=== PATIENT | female | born 1965 | race African-American/Black ===

== ENCOUNTER 2019-03-30 09:01 | Emergency (ER) | payer BC ==
[~2019-03-30] VITALS: Ht 172.7 cm; Wt 81.0 kg
[~2019-03-30 09:01] MED LIST: POLY17PO29 PO
--- NOTE | 2019-03-30 09:42 | PHYS DOC ---
Past Medical History Past Medical History: Hypertension, TB Additional Past Medical Histor: TB Past Surgical History: Additional Past Surgical Histo: RIGHT SHOULDER, , RIGHT HAND Alcohol Use: None Drug Use: None Adult General Chief Complaint Chief Complaint: HYPERTENSION HPI HPI Patient is a 54 year old female who presents with out of blood pressure medi cations for the last 3 months. She states last week she's had headaches that come and go and chest pains in her mid chest as a tightness and pressure. She denies shortness of breath, abdominal pain, nausea, vomiting, diarrhea, numbness or tingling, weakness, visual changes, dizziness. She states that at times she will get a headache that will come and go but is right behind her left eye. She states that this morning she could tell her blood pressure was high and so she drank some apple cider vinegar and started feeling better. Patient currently has no pain and is not symptomatic. Review of Systems Review of Systems Respiratory: Denies cough or shortness of breath [] Cardiovascular: Intermittent chest tightness and pressure.] : Constipation. Denies dysuria or hematuria [] Neurologic: Intermittent headache, focal weakness or sensory changes [] All other systems were reviewed and found to be within normal limits, except as documented in this note. Current Medications Current Medications Current Medications Medications (Trade) Dose Ordered Sig/Kimber Start Time Stop Time Status Last Admin Dose Admin Aspirin (Meredith Aspirin) 325 mg 1X ONCE 03/30/19 09:45 03/30/19 10:28 DC 03/30/19 10:42 325 MG Clonidine HCl (Catapres) 0.2 mg 1X ONCE 03/30/19 11:00 03/30/19 11:01 DC 03/30/19 11:35 0.2 MG Allergies Allergies Allergies Coded Allergies Type Severity Reaction Last Updated Verified No Known Drug Allergies 03/30/19 No Physical Exam Physical Exam Constitutional: Well developed, well nourished, no acute distress, non-toxic appearance. [] HENT: Normocephalic, atraumatic, bilateral external ears normal, oropharynx moist, no oral exudates, nose normal. [] Eyes: PERRLA, EOMI, conjunctiva normal, no discharge. [] Neck: Normal range of motion, no tenderness, supple, no stridor. [] Cardiovascular:Heart rate regular rhythm, no murmur [] Lungs & Thorax: Bilateral breath sounds clear to auscultation [] Abdomen: Bowel sounds normal, soft, no tenderness, no masses, no pulsatile masses. [] Skin: Warm, dry, no erythema, no rash. [] Back: No tenderness, no CVA tenderness. [] Extremities: No tenderness, no cyanosis, no clubbing, ROM intact, no edema. [] Neurologic: Alert and oriented X 3, normal motor function, normal sensory function, no focal deficits noted. [] Psychologic: Affect normal, judgement normal, mood normal. Normal Physical Exam[] Current Patient Data Vital Signs Vital Signs Date Time Temp Pulse Resp B/P (MAP) Pulse Ox O2 Delivery O2 Flow Rate FiO2 03/30/19 11:35 73 172/94 03/30/19 11:32 97 03/30/19 10:48 18 03/30/19 09:19 98.4 Room Air 98.4 Lab Values Laboratory Tests Test 03/30/19 10:05 03/30/19 11:25 White Blood Count 8.3 x10^3/uL (4.0-11.0) Red Blood Count 4.34 x10^6/uL (3.50-5.40) Hemoglobin 13.7 g/dL (12.0-15.5) Hematocrit 40.3 % (36.0-47.0) Mean Corpuscular Volume 93 fL (79-100) Mean Corpuscular Hemoglobin 32 pg (25-35) Mean Corpuscular Hemoglobin Concent 34 g/dL (31-37) Red Cell Distribution Width 13.6 % (11.5-14.5) Platelet Count 306 x10^3/uL (140-400) Neutrophils (%) (Auto) 62 % (31-73) Lymphocytes (%) (Auto) 26 % (24-48) Monocytes (%) (Auto) 10 % (0-9) H Eosinophils (%) (Auto) 2 % (0-3) Basophils (%) (Auto) 1 % (0-3) Neutrophils # (Auto) 5.2 x10^3/uL (1.8-7.7) Lymphocytes # (Auto) 2.1 x10^3/uL (1.0-4.8) Monocytes # (Auto) 0.8 x10^3/uL (0.0-1.1) Eosinophils # (Auto) 0.1 x10^3/uL (0.0-0.7) Basophils # (Auto) 0.1 x10^3/uL (0.0-0.2) Prothrombin Time 12.8 SEC (11.7-14.0) Prothrombin Time INR 1.0 (0.8-1.1) Sodium Level 144 mmol/L (136-145) Potassium Level 3.8 mmol/L (3.5-5.1) Chloride Level 107 mmol/L (98-107) Carbon Dioxide Level 27 mmol/L (21-32) Anion Gap 10 (6-14) Blood Urea Nitrogen 16 mg/dL (7-20) Creatinine 0.8 mg/dL (0.6-1.0) Estimated GFR (Cockcroft-Gault) 90.8 BUN/Creatinine Ratio 20 (6-20) Glucose Level 95 mg/dL (70-99) Calcium Level 9.4 mg/dL (8.5-10.1) Total Bilirubin 0.3 mg/dL (0.2-1.0) Aspartate Amino Transferase (AST) 13 U/L (15-37) L Alanine Aminotransferase (ALT) 12 U/L (14-59) L Alkaline Phosphatase 81 U/L (46-116) Troponin I Quantitative < 0.017 ng/mL (0.000-0.055) RO-Vfx-H-Type Natriuretic Peptide 21 pg/mL (0-124) Total Protein 7.4 g/dL (6.4-8.2) Albumin 3.7 g/dL (3.4-5.0) Albumin/Globulin Ratio 1.0 (1.0-1.7) Urine Collection Type Unknown Urine Color Yellow Urine Clarity Clear Urine pH 6.0 Urine Specific [place] 1.015 Urine Protein Negative mg/dL (NEG-TRACE) Urine Glucose (UA) Negative mg/dL (NEG) Urine Ketones (Stick) Negative mg/dL (NEG) Urine Blood Negative (NEG) Urine Nitrite Negative (NEG) Urine Bilirubin Negative (NEG) Urine Urobilinogen Dipstick 1.0 mg/dL (0.2 mg/dL) Urine Leukocyte Esterase Moderate (NEG) Urine RBC 0 /HPF (0-2) Urine WBC 1-4 /HPF (0-4) Urine Squamous Epithelial Cells Few /LPF Urine Bacteria 0 /HPF (0-FEW) Urine Opiates Screen Neg (NEG) Urine Methadone Screen Neg (NEG) Urine Barbiturates Neg (NEG) Urine Phencyclidine Screen Neg (NEG) Urine Amphetamine/Methamphetamine Neg (NEG) Urine Benzodiazepines Screen Neg (NEG) Urine Cocaine Screen Neg (NEG) Urine Cannabinoids Screen Pos (NEG) Urine Ethyl Alcohol Neg (NEG) Laboratory Tests 03/30/19 10:05 Laboratory Tests 03/30/19 10:05 EKG EKG Sinus Rhythm and no STEMI Interpretation Time: [address] Vasques Radiology/Procedures Radiology/Procedures [] Impressions: [facility] [address] [place] [address] IMAGING REPORT Signed PATIENT: RANDI LUGO ACCOUNT: [id number] : 1965 LOCATION: ER AGE: 54 SEX: F EXAM STATUS: REG ER ORD. PHYSICIAN: BAY OLIVIA APRN REASON: chest pain PROCEDURE: CHEST PA & LATERAL EXAM: Chest, 2 views. HISTORY: Chest pain. COMPARISON: None. FINDINGS: 2 views of chest are obtained. There is no infiltrate, pleural effusion or pneumothorax. The heart is normal in size. IMPRESSION: No acute pulmonary finding. Electronically signed by: Tova Newman MD (03/30/2019 10:15 AM) [facility] DICTATED and SIGNED BY: TOVA NEWMAN MD DATE: 03/30/19 1015 Course & Med Decision Making Course & Med Decision Making Alert and oriented. Speaks in full clear sentences. Ambulatory with steady gait. Skin pink warm and dry. PERRLA. No extremity edema. Lungs are clear to auscultation all lobes. Patient states usually goes to [facility] and does not remember what medications that she was on for her high blood pressure. She also complains of constipation. Abdomen is soft and nontender. Patient's blood pressure has come down to 164/97. Patient remains asymptomatic. Patient is given Norvasc 5 mg to take daily. She is to follow-up with primary care provider. I have spoken to Dr Vasques about this patient findings and care plan. Dragon Disclaimer Dragon Disclaimer This electronic medical record was generated, in whole or in part, using a voice recognition dictation system. The HEART Score for CP Pts HEART Score for Chest Pain: HEART Score for Chest Pain Response (Comments) Value History Slighlty/Non-Suspicious 0 ECG Normal 0 Age >45 - < 65 1 Risk Factors 1 or 2 Risk Factors 1 Troponin < Normal Limit 0 Total 2 Risk Factors: Risk Factors: DM, Current or recent (<one month) smoker, HTN, HLP, family history of CAD, obesity. Risk Scores: Score 0 - 3: 2.5% MACE over next 6 weeks - Discharge Home Score 4 - 6: 20.3% MACE over next 6 weeks - Admit for Clinical Observation Score 7 - 10: 72.7% MACE over next 6 weeks - Early Invasive Strategies Departure Departure Impression: Primary Impression: Constipation Additional Impressions: Hypertension Chest pain Disposition: HOME, SELF-CARE Condition: STABLE Referrals: NO PCP (PCP) Patient Instructions: Constipation, Adult, Hypertension Additional Instructions: Follow up with a primary care doctor as soon as possible. Take medications as prescribed. Scripts Amlodipine Besylate (NORVASC) 5 Mg Tablet 1 TAB PO DAILY, #30 TAB 5 Refills Prov: BAY OLIVIA APRN 03/30/19 Problem Qualifiers Primary Impression: Constipation Constipation type: unspecified constipation type Qualified Codes: K59.00 - Constipation, unspecified Additional Impressions: Hypertension Hypertension type: unspecified Qualified Codes: I10 - Essential (primary) hypertension Chest pain Chest pain type: unspecified Qualified Codes: R07.9 - Chest pain, unspecified BAY OLIVIA APRN Mar 30, 2019 09:42
[2019-03-30] MEDS ORDERED: ASPIRIN 325 MG TABLET PO ONE (09:45)
--- NOTE | 2019-03-30 10:17 | RAD ---
EXAM: Chest, 2 views. HISTORY: Chest pain. COMPARISON: None. FINDINGS: 2 views of chest are obtained. There is no infiltrate, pleural effusion or pneumothorax. The heart is normal in size. IMPRESSION: No acute pulmonary finding. Electronically signed by: Tova Watson MD (03/30/2019 10:15 AM) [facility]
[2019-03-30 10:19] LABS: BASO # 0.1 x10^3/uL (0.0-0.2); BASO % 1 % (0-3); EOS # 0.1 x10^3/uL (0.0-0.7); EOS % 2 % (0-3); HEMATOCRIT 40.3 % (36.0-47.0); HEMOGLOBIN 13.7 g/dL (12.0-15.5); LYMPH # 2.1 x10^3/uL (1.0-4.8); LYMPH % 26 % (24-48); MEAN CORPUSCULAR HEMOGLOBIN 32 pg (25-35); MEAN CORPUSCULAR HGB CONC 34 g/dL (31-37); MEAN CORPUSCULAR VOLUME 93 fL (79-100); MONO # 0.8 x10^3/uL (0.0-1.1); MONO % 10 % (0-9); NEUT # 5.2 x10^3/uL (1.8-7.7); NEUT % 62 % (31-73); PLATELET COUNT 306 x10^3/uL (140-400); RED BLOOD COUNT 4.34 x10^6/uL (3.50-5.40); RED CELL DISTRIBUTION WIDTH 13.6 % (11.5-14.5); WHITE BLOOD COUNT 8.3 x10^3/uL (4.0-11.0)
[2019-03-30 10:30] LABS: CALCIUM 9.4 mg/dL (8.5-10.1); CREATININE 0.8 mg/dL (0.6-1.0); GFR 90.8; POTASSIUM 3.8 mmol/L (3.5-5.1)
[2019-03-30 10:36] LABS: ALBUMIN 3.7 g/dL (3.4-5.0); TOTAL BILIRUBIN 0.3 mg/dL (0.2-1.0); TOTAL PROTEIN 7.4 g/dL (6.4-8.2)
[2019-03-30 10:40] LABS: PROTHROMBIN TIME PATIENT 12.8 SEC (11.7-14.0)
[2019-03-30] MEDS ORDERED: cloNIDine HCL 0.1 MG TABLET PO ONE (11:00)
[2019-03-30 11:39] LABS: BILIRUBIN,URINE NEGATIVE (NEG); CLARITY,URINE CLEAR; COLOR,URINE YELLOW; NITRITE,URINE NEGATIVE (NEG); PROTEIN,URINE NEGATIVE (NEG-TRACE)
[2019-03-30 11:48] LABS: BARBITURATES NEG (NEG); BENZODIAZEPINES NEG (NEG); CANNABINOIDS POS (NEG); COCAINE NEG (NEG); METHADONE NEG (NEG); OPIATES NEG (NEG); PHENCYCLIDINE NEG (NEG)
[2019-03-30 11:49] LABS: AMPHETAMINE/METHAMPHETAMINE NEG (NEG)
[2019-03-30 11:57] LABS: BACTERIA,URINE 0 /HPF (0-FEW); RBC,URINE 0 /HPF (0-2); SQUAMOUS EPITHELIAL CELL,UR FEW /LPF
--- NOTE | 2019-03-30 12:10 | EKG ---
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
[2019-03-30 12:17] VITALS: BP 164/97
[2019-03-30] MEDS ORDERED: AMLO5TAB4 PO (12:24)
[2019-03-30] MEDS ORDERED: MAGNESIUM CITRATE 296 ML SOLUTION. PO ONE (12:30)
== END 2019-03-30 12:50 | disposition home or self-care (01) ==
LOC: ER 09:01
DX: I10 Essential (primary) hypertension (principal); K59.00 Constipation, unspecified; R07.89 Other chest pain; R51 Headache; A15.9 Respiratory tuberculosis unspecified; Z98.890 Other specified postprocedural states; Z79.82 Long term (current) use of aspirin
CPT/HCPCS: 36415; 71046; 80053; 80307; 81001; 83880; 84484; 85025; 85610; 87086; 93005; 99285

== ENCOUNTER 2020-02-17 08:34 | Emergency (ER) | payer BC ==
[~2020-02-17] VITALS: Ht 172.7 cm; Wt 89.0 kg
[~2020-02-17 08:34] MED LIST changes: +AMLO5TAB4 PO
[2020-02-17 08:45] VITALS: BP 175/103
--- NOTE | 2020-02-17 09:29 | PHYS DOC ---
Past Medical History Past Medical History: Hypertension, TB Additional Past Medical Histor: TB Past Surgical History: Additional Past Surgical Histo: RIGHT SHOULDER, , RIGHT HAND Smoking Status: Current Every Day Smoker Alcohol Use: Occasionally Drug Use: None General Adult EDM: Chief Complaint: EARACHE/EAR PAIN HPI: HPI: Patient is a 55 year old female presents emergency department with complaints of bilateral earaches for the past week along with constipation problems for the past several months. Patient denies any drainage from her ears, denies difficulty hearing, denies nasal congestion, denies cough, denies sore throat, denies shortness of breath, denies chest pains. Patient denies vision problems, denies drainage from her eyes, denies irritation of her eyes. Patient denies facial pain. Patient denies any rashes of her skin. Patient reports generalized abdominal discomfort that she states she cannot put a pain number on because it is not necessarily a pain more that she feels like she is just constipated and full. Patient states that her last normal BM was about a week ago however she does report having small round hard bowel movements yesterday and the day before along with passing gas. Patient denies any rectal pain or bleeding in her stool. Patient denies any vaginal discharge, urinary symptoms, or STI concerns. Patient denies numbness or tingling to her extremities. Patient denies back pain. Patient denies any headaches, fever or chills. Patient denies any recent exposure to the COVID-19 virus and does not feel as if she needs to be tested today for the COVID-19 virus. Patient also states that she noticed her blood pressure was high during the triage process and states that she had not taken her 5 mg amlodipine yet that she usually takes right around 9 AM. Patient denies any headaches, dizziness, or neurological symptom or complaints.. Review of Systems: Review of Systems: 14 body systems of review of systems have been reviewed. See HPI for pertinent positives and negative responses, otherwise all other systems are negative, nonpertinent or noncontributory. Heart Score: Risk Factors: Risk Factors: DM, Current or recent (<one month) smoker, HTN, HLP, family hist ory of CAD, obesity. Risk Scores: Score 0 - 3: 2.5% MACE over next 6 weeks - Discharge Home Score 4 - 6: 20.3% MACE over next 6 weeks - Admit for Clinical Observation Score 7 - 10: 72.7% MACE over next 6 weeks - Early Invasive Strategies Current Medications: Patient reports taking 5 mg amlodipine p.o. daily. Current Medications Medications (Trade) Dose Ordered Sig/Kimber Start Time Stop Time Status Last Admin Dose Admin Ibuprofen (Motrin) 600 mg 1X ONCE 02/17/20 09:30 02/17/20 09:31 Allergies: Allergies: Allergies Coded Allergies Type Severity Reaction Last Updated Verified No Known Drug Allergies 03/30/19 No Physical Exam: PE: Constitutional: Well developed, well nourished, no acute distress, non-toxic appearance. HENT: Normocephalic, atraumatic, bilateral external ears normal, oropharynx moist, no oral exudates, nose normal. Bilateral auditory canals within normal limits, bilateral TMs are reddened at the outer borders with effusion without otorrhea, bulging of bilateral TMs, TMs are intact, bilateral otalgia. Oropharynx slightly erythematous without postnasal drip, no tonsillar swelling no peritonsillar edema, no uvular edema. Oral dentation within normal limits without dental caries, no dentalgia elicited during exam. Eyes: PERRLA, EOMI, conjunctiva normal, no discharge. Neck: Normal range of motion, no tenderness, supple, no stridor. Cardiovascular:Heart rate regular rhythm, no murmur, heart sounds S1-S2 to auscultation. Lungs & Thorax: Bilateral breath sounds clear to auscultation all lung yoon Abdomen: Bowel sounds normal, soft, no masses, no pulsatile masses. Abdomen is rounded, patient obese, elicited generalized discomfort to palpation, however negative psoas sign, negative McBurney's point tenderness, negative rebound tenderness. Skin: Warm, dry, no erythema, no rash. Back: No tenderness, no CVA tenderness. Extremities: No tenderness, no cyanosis, no clubbing, ROM intact, no edema. Neurologic: Alert and oriented X 3, normal motor function, normal sensory function, no focal deficits noted. Psychologic: Affect normal, judgement normal, mood normal. Current Patient Data: Labs: Laboratory Tests Test 02/17/20 09:30 Group A Streptococcus Rapid Negative Current Medications Medications (Trade) Dose Ordered Sig/Kimber Route PRN Reason Start Time Stop Time Status Last Admin Dose Admin Ibuprofen (Motrin) 600 mg 1X ONCE PO 02/17/20 09:30 02/17/20 09:31 DC 02/17/20 09:33 Vital Signs: Vital Signs Date Time Temp Pulse Resp B/P (MAP) Pulse Ox O2 Delivery O2 Flow Rate FiO2 02/17/20 08:45 98.2 89 16 175/103 (127) 99 Room Air 98.2 EKG: EKG: [] Radiology/Procedures: Radiology/Procedures: STATUS: REG ER ORD. PHYSICIAN: BRIA DALAL APRN REASON: ABDOMINAL DISCOMFORT WITH CONSTIPATION PROCEDURE: KUB ABDOMEN AP Clinical Indication: Reason: ABDOMINAL DISCOMFORT WITH CONSTIPATION / Spl. Instructions: / History: Comparison: KUB, November 16, 2018 Findings: The upper abdomen and the right lateral abdomen are excluded. No dilated loops of small bowel are seen. The bowel gas pattern is nonobstructive. Mild colon stool volume. There is no radiopaque foreign body. There are multiple phleboliths in the pelvis. There is no acute bony abnormality. IMPRESSION: Nonobstructive bowel gas pattern. Electronically signed by: Aaron Lugo MD (02/17/2020 10:15 AM) [id number] DICTATED and SIGNED BY: AARON LUGO MD DATE: 02/17/20 [id number] 0 Course & Med Decision Making: Course & Med Decision Making Pertinent Labs and Imaging studies reviewed. (See chart for details) 55-year-old female, vital signs stable, repeat blood pressure 184/90 during physical examination. Physical examination is consistent with bilateral acute otitis media, patient did not complain of sore throat however oropharynx is slightly erythematous, a rapid strep a was obtained, patient's abdominal exam consistent with constipation, KUB was ordered, pending x-ray interpretation and rapid strep results. Patient had not taken her a.m. dose of 5 mg amlodipine, patient given oral fluids so that she may take her morning dose of amlodipine at bedside. Upon reexamination, patient reports some relief of her ear pain with the p.o. Motrin given. House radiologist interpreted KUB x-ray as nonobstructive bowel gas pattern, this is consistent with patient's chief complaint and physical examination. Patient's vital signs reexamine, remained stable. Discussed with patient findings of the rapid strep test and abdominal x-rays. We will start patient on Augmentin twice daily for 7 days. Discussed with patient using ajhl-mvi-aiarjoq laxatives such as MiraLAX or magnesium citrate, increase her daily fiber intake, increase her daily water intake. Patient gave verbal understanding of discharge home instructions, return to ER concerns, follow-up with her physician soon. Primary impression acute otitis media, constipation, this is unlikely a bowel obstruction, this is unlikely a deep tissue infection of the upper respiratory structures. Jesús Disclaimer: Dragon Disclaimer: This electronic medical record was generated, in whole or in part, using a voice recognition dictation system. Departure Departure Impression: Primary Impression: AOM (acute otitis media) Qualified Codes: H66.003 - Acute suppurative otitis media without spontaneous rupture of ear drum, bilateral Additional Impressions: Constipation Qualified Codes: K59.00 - Constipation, unspecified Otalgia of both ears Pharyngitis Qualified Codes: J02.9 - Acute pharyngitis, unspecified Disposition: 01 DC HOME SELF CARE/HOMELESS Condition: STABLE Referrals: NO PCP (PCP) Patient Instructions: Constipation, Adult Additional Instructions: Please take medications as directed, we have discussed your constipation problems, we have also discussed remedies to prevent future constipation, please increase your daily fiber intake and fluid intake, you can use mkeh-oty-zxjecta laxatives such as magnesium citrate or MiraLAX, if you have difficulties finding these at the pharmacy please ask the pharmacist for assistance. Please return to the emergency department for worsening symptoms, please see your doctor soon regarding your ongoing constipation problems so that he can closely monitor [id number] treatments. EMERGENCY DEPARTMENT GENERAL DISCHARGE INSTRUCTIONS Thank you for coming to [facility] Emergency Department (ED) today and trusting us with you care. We trust that you had a positive experience in our Emergency Department. If you wish to speak to the department management, you may call the Director at [phone]. YOUR FOLLOW UP INSTRUCTIONS ARE FOLLOWS: 1. Do you have a private Doctor? If you do not have a private doctor, please ask for a resource list of physicians or clinics that may be able to assist you with follow up care. 2. The Emergency Physicain has interpreted your x-rays. The X-Ray specialist will also review them. If there is a change in the findings, you will be notified in 48 hours when at all possible. 3. A lab test or culture has been done, your results will be reviewed and you will be notified if you need a change in treatment. ADDITIONAL INSTRUCTIONS AND INFORMATION: 1. Your care today has been supervised by a physician who is specially trained in emergency care. Many problems require more than one evaluation for a complete diagnosis and treatment. We recommend that you schedule your follow up appointment as recommended to ensure complete treatment of you illness or injury. If you are unable to obtain follow up care and continue to have a problem, or if your condition worsens, we recommend that you return to the ED. 2. We are not able to safely determine your condition over the phone nor are we able to give sound medical advice over the phone. For these safety reasons, if you call for medical advice we will ask you to come to the ED for further evaluation. 3. If you have any questions regarding these discharge instructions please call the ED at [phone]. SAFETY INFORMATION: In the interest of safety, wellness, and injury prevention; we encourage you to wear your sealbelt, if you smoke; quite smoking, and we encourage family to use a protective helmet for bicycling and other sporting events that present an increased risk for head injury. IF YOUR SYMPTOMS WORSEN OR NEW SYMPTOMS DEVELOP, OR YOU HAVE CONCERNS ABOUT YOUR CONDITION; OR IF YOUR CONDITION WORSENS WHILE YOU ARE WAITING FOR YOUR FOLLOW UP APPOINTMENT; EITHER CONTACT YOUR PRIMARY CARE DOCTOR, THE PHYSICIAN WHOSE NAME AND NUMBER YOU WERE GIVEN, OR RETURN TO THE ED IMMEDIATELY. Scripts Amoxicillin/Potassium Clav (AUGMENTIN 875-125 TABLET) 1 Each Tablet 1 TAB PO BID for ear infection for 7 Days, #14 TAB 0 Refills Prov: BRIA DALAL APRN 02/17/20 BRIA DALAL APRN Feb 17, 2020 09:29
[2020-02-17] MEDS ORDERED: IBUPROFEN 200 MG TABLET. PO ONE (09:30)
--- NOTE | 2020-02-17 10:17 | RAD ---
ABDOMEN AP Clinical Indication: Reason: ABDOMINAL DISCOMFORT WITH CONSTIPATION / Spl. Instructions: / History: Comparison: KUB, November 16, 2018 Findings: The upper abdomen and the right lateral abdomen are excluded. No dilated loops of small bowel are seen. The bowel gas pattern is nonobstructive. Mild colon stool v olume. There is no radiopaque foreign body. There are multiple phleboliths in the pelvis. There is no acute bony abnormality. IMPRESSION: Nonobstructive bowel gas pattern. Electronically signed by: Aaron Hernandez MD (02/17/2020 10:15 AM) [id number]
[2020-02-17] MEDS ORDERED: AMOX1TAB61 PO (10:34)
== END 2020-02-17 10:44 | disposition home or self-care (01) ==
LOC: ER 08:34
DX: H66.003 Acute suppurative otitis media without spontaneous rupture of ear drum, bilateral (principal); K59.00 Constipation, unspecified; J02.9 Acute pharyngitis, unspecified; I10 Essential (primary) hypertension; F17.200 Nicotine dependence, unspecified, uncomplicated
CPT/HCPCS: 74018; 87070; 87880; 99284

== ENCOUNTER 2020-03-10 07:10 | Observation (INO) | payer BC ==
[~2020-03-10] VITALS: Ht 172.7 cm; Wt 95.8 kg
[~2020-03-10 07:10] MED LIST changes: +AMOX1TAB61 PO
--- NOTE | 2020-03-10 07:43 | PHYS DOC ---
Past Medical History Past Medical History: Hypertension, TB Additional Past Medical Histor: TB Past Surgical History: Additional Past Surgical Histo: RIGHT SHOULDER, , RIGHT HAND Smoking Status: Current Every Day Smoker Additional Information: 1/2 ppd Alcohol Use: Occasionally Drug Use: None General Adult EDM: Chief Complaint: CHEST PAIN HPI: HPI: Patient is a 55 year old female who presented to ER for evaluation of chest pain and headache since yesterday. Patient has history of hypertension, she is on Norvasc 5 mg daily. She took her last pill yesterday. Patient complained of headache and blurry vision again when she woke up this morning. She described her chest pain is aching in nature. Patient denies any cough or fever. Patient denies any abdominal pain, no nausea vomiting. Review of Systems: Review of Systems: Constitutional: Denies fever or chills. [] Eyes: Denies change in visual acuity. [] HENT: Denies nasal congestion or sore throat. [] Respiratory: Denies cough or shortness of breath. [] Cardiovascular: Positive for chest pain, no edema GI: Denies abdominal pain, nausea, vomiting, bloody stools or diarrhea. [] : Denies dysuria. [] Musculoskeletal: Denies back pain or joint pain. [] Integument: Denies rash. [] Neurologic: Positive for headache, no focal weakness or numbness Endocrine: Denies polyuria or polydipsia. [] Lymphatic: Denies swollen glands. [] Psychiatric: Denies depression or anxiety. [] Heart Score: HEART Score for Chest Pain: HEART Score for Chest Pain Response (Comments) Value History Moderately Suspicious 1 ECG Nonspecific Repolarizatio 1 Age >45 - < 65 1 Risk Factors 1 or 2 Risk Factors 1 Troponin < Normal Limit 0 Total 4 Risk Factors: Risk Factors: DM, Current or recent (<one month) smoker, HTN, HLP, family history of CAD, obesity. Risk Scores: Score 0 - 3: 2.5% MACE over next 6 weeks - Discharge Home Score 4 - 6: 20.3% MACE over next 6 weeks - Admit for Clinical Observation Score 7 - 10: 72.7% MACE over next 6 weeks - Early Invasive Strategies Current Medications: Current Medications Medications (Trade) Dose Ordered Sig/Kimber Start Time Stop Time Status Last Admin Dose Admin Metoprolol Tartrate (Lopressor Vial) 5 mg 1X ONCE 1/12/21 07:45 03/10/20 07:46 Allergies: Allergies: Allergies Coded Allergies Type Severity Reaction Last Updated Verified No Known Drug Allergies 03/10/20 No Physical Exam: PE: Constitutional: Well developed, well nourished, no acute distress, non-toxic appearance. [] HENT: Normocephalic, atraumatic, bilateral external ears normal, oropharynx moist, no oral exudates, nose normal. [] Eyes: PERRLA, EOMI, conjunctiva normal, no discharge. [] Neck: Normal range of motion, no tenderness, supple, no stridor. [] Cardiovascular:Heart rate regular rhythm, no murmur [] Lungs & Thorax: Bilateral breath sounds clear to auscultation [] Abdomen: Bowel sounds normal, soft, no tenderness, no masses, no pulsatile masses. [] Skin: Warm, dry, no erythema, no rash. [] Back: No tenderness, no CVA tenderness. [] Extremities: No tenderness, no cyanosis, no clubbing, ROM intact, no edema. [] Neurologic: Alert and oriented X 3, normal motor function, normal sensory function, no focal deficits noted. [] Psychologic: Affect normal, judgement normal, mood normal. [] Current Patient Data: Labs: Laboratory Tests Test 03/10/20 07:45 03/10/20 08:45 03/10/20 09:40 White Blood Count 8.0 x10^3/uL Red Blood Count 4.46 x10^6/uL Hemoglobin 14.0 g/dL Hematocrit 41.1 % Mean Corpuscular Volume 92 fL Mean Corpuscular Hemoglobin 31 pg Mean Corpuscular Hemoglobin Concent 34 g/dL Red Cell Distribution Width 13.4 % Platelet Count 302 x10^3/uL Neutrophils (%) (Auto) 54 % Lymphocytes (%) (Auto) 32 % Monocytes (%) (Auto) 10 % Eosinophils (%) (Auto) 2 % Basophils (%) (Auto) 1 % Neutrophils # (Auto) 4.4 x10^3/uL Lymphocytes # (Auto) 2.6 x10^3/uL Monocytes # (Auto) 0.8 x10^3/uL Eosinophils # (Auto) 0.2 x10^3/uL Basophils # (Auto) 0.1 x10^3/uL Sodium Level 145 mmol/L Potassium Level 4.1 mmol/L Chloride Level 108 mmol/L Carbon Dioxide Level 27 mmol/L Anion Gap 10 Blood Urea Nitrogen 16 mg/dL Creatinine 0.9 mg/dL Estimated GFR (Cockcroft-Gault) 79.0 BUN/Creatinine Ratio 18 Glucose Level 105 mg/dL Calcium Level 9.1 mg/dL Magnesium Level 2.2 mg/dL Total Bilirubin 0.3 mg/dL Aspartate Amino Transf (AST/SGOT) 13 U/L Alanine Aminotransferase (ALT/SGPT) 23 U/L Alkaline Phosphatase 71 U/L Troponin I Quantitative < 0.017 ng/mL < 0.017 ng/mL HS-Oks-X-Type Natriuretic Peptide 21 pg/mL Total Protein 6.7 g/dL Albumin 3.5 g/dL Albumin/Globulin Ratio 1.1 Lipase 147 U/L Urine Collection Type Void Urine Color Yellow Urine Clarity Clear Urine pH 6.5 Urine Specific [place] 1.015 Urine Protein Negative mg/dL Urine Glucose (UA) Negative mg/dL Urine Ketones (Stick) Negative mg/dL Urine Blood Negative Urine Nitrite Negative Urine Bilirubin Negative Urine Urobilinogen Dipstick 1.0 mg/dL Urine Leukocyte Esterase Moderate Urine RBC Occ /HPF Urine WBC 5-10 /HPF Urine Squamous Epithelial Cells Mod /LPF Urine Bacteria Few /HPF Urine Mucus Slight /LPF Urine Trichomonas Present Current Medications Medications (Trade) Dose Ordered Sig/Kimber Route PRN Reason Start Time Stop Time Status Last Admin Dose Admin Metoprolol Tartrate (Lopressor Vial) 5 mg 1X ONCE IVP 03/10/20 07:45 03/10/20 07:46 DC 03/10/20 08:10 Nitroglycerin (Nitrostat) 0.4 mg PRN Q5MIN PRN SL CHEST PAIN 03/10/20 08:45 03/10/20 09:36 Iohexol (Omnipaque 350 Mg/ml) 100 ml 1X ONCE IV 03/10/20 09:00 03/10/20 09:01 DC 03/10/20 09:05 Info (CONTRAST GIVEN -- Rx MONITORING) 1 each PRN DAILY PRN MC SEE COMMENTS 03/10/20 09:00 03/12/20 08:59 Laboratory Tests Test 03/10/20 07:45 White Blood Count 8.0 x10^3/uL Red Blood Count 4.46 x10^6/uL Hemoglobin 14.0 g/dL Hematocrit 41.1 % Mean Corpuscular Volume 92 fL Mean Corpuscular Hemoglobin 31 pg Mean Corpuscular Hemoglobin Concent 34 g/dL Red Cell Distribution Width 13.4 % Platelet Count 302 x10^3/uL Neutrophils (%) (Auto) 54 % Lymphocytes (%) (Auto) 32 % Monocytes (%) (Auto) 10 % Eosinophils (%) (Auto) 2 % Basophils (%) (Auto) 1 % Neutrophils # (Auto) 4.4 x10^3/uL Lymphocytes # (Auto) 2.6 x10^3/uL Monocytes # (Auto) 0.8 x10^3/uL Eosinophils # (Auto) 0.2 x10^3/uL Basophils # (Auto) 0.1 x10^3/uL Sodium Level 145 mmol/L Potassium Level 4.1 mmol/L Chloride Level 108 mmol/L Carbon Dioxide Level 27 mmol/L Anion Gap 10 Blood Urea Nitrogen 16 mg/dL Creatinine 0.9 mg/dL Estimated GFR (Cockcroft-Gault) 79.0 BUN/Creatinine Ratio 18 Glucose Level 105 mg/dL Calcium Level 9.1 mg/dL Magnesium Level 2.2 mg/dL Total Bilirubin 0.3 mg/dL Aspartate Amino Transf (AST/SGOT) 13 U/L Alanine Aminotransferase (ALT/SGPT) 23 U/L Alkaline Phosphatase 71 U/L Troponin I Quantitative < 0.017 ng/mL [id number] Natriuretic Peptide 21 pg/mL Total Protein 6.7 g/dL Albumin 3.5 g/dL Albumin/Globulin Ratio 1.1 Lipase 147 U/L Current Medications Medications (Trade) Dose Ordered Sig/Kimber Route PRN Reason Start Time Stop Time Status Last Admin Dose Admin Metoprolol Tartrate (Lopressor Vial) 5 mg 1X ONCE IVP 03/10/20 07:45 03/10/20 07:46 DC 03/10/20 08:10 Vital Signs: Vital Signs Date Time Temp Pulse Resp B/P (MAP) Pulse Ox O2 Delivery O2 Flow Rate FiO2 03/10/20 07:28 98.8 73 18 186/92 (123) 99 Room Air 98.8 EKG: EKG: EKG was done at 7:24 AM, heart rate 77 beats per minute, sinus rhythm, no ST segment elevation. Radiology/Procedures: Radiology/Procedures: [][facility] [address] [place] [address] IMAGING REPORT Signed PATIENT: RANDI LUGO ACCOUNT: [id number] : 1965 LOCATION: ER AGE: 55 SEX: F EXAM STATUS: REG ER ORD. PHYSICIAN: PRAVEEN PACHECO DO REASON: headache, hypertension, blurry vision PROCEDURE: CT HEAD WO CONTRAST EXAM: CT Head without IV contrast INDICATION: Reason: headache, hypertension, blurry vision / Spl. Instructions: / History: TECHNIQUE: Multi-detector row CT images were obtained of the head without the use of IV contrast. All CT scans performed at this facility utilize dose optimization techniques as appropriate to the exam, including the following: Automated exposure control and adjustment of the mA and/or KV according to patient size (this includes techniques or standardized protocols for targeted exams where dose is indication/reason for exam). COMPARISON: None FINDINGS: BRAIN PARENCHYMA: No evidence of acute intraparenchymal hemorrhage or infarct. Mild generalized parenchymal volume loss is present and lacunar infarcts are noted in the caudate head on the left, chronic appearing. There is pe riventricular white matter low density compatible with chronic ischemic microvascular change but is nonspecific. VENTRICLES & EXTRA-AXIAL SPACES: Ventricles are within normal limits. Basilar cisterns are patent. No pathologic extra-axial fluid collection or mass. ORBITS: Orbital contents are unremarkable. SINUSES: Visualized paranasal sinuses and mastoid air cells are clear. OSSEOUS & SOFT TISSUES: Calvarium and skull base are intact but on the inner table of the right squamous temporal bone is a 3.3 x 2.2 x 3.0 cm ossified extra-axial mass compatible with a meningioma. IMPRESSION: 1. No acute intracranial hemorrhage or infarct. 2. Nonspecific generalized white matter low density that, reflects chronic ischemic microvascular change. Some component of vasogenic edema can be difficult to exclude. 3. Right squamous temporal bone 3.2 x 2.2 x 3.0 cm ossified mass in the right middle cranial fossa, most suggestive of a meningioma. Consider follow-up with MRI in further characterization. EXAM: XR CHEST 1V INDICATION: Reason: headache, hypertension, blurry vision / Spl. Instructions: / History: . TECHNIQUE: Single view COMPARISON: Chest x-ray of 03/30/2019 FINDINGS: The heart size is normal. The great vessels appear unremarkable. There is no hilar or mediastinal mass. The lungs are clear. There is no pleural effusion or pneumothorax. There are no significant osseous abnormalities. IMPRESSION: No active cardiopulmonary disease. Electronically signed by: Gregory Nagel MD (03/10/2020 8:19 AM) [id number] DICTATED and SIGNED BY: GREGORY NAGEL MD DATE: 03/10/20 [id number] [facility] [address] [place] [address] IMAGING REPORT Signed PATIENT: RANDI LUGO ACCOUNT: [id number] : 1965 LOCATION: ER AGE: 55 SEX: F EXAM STATUS: REG ER ORD. PHYSICIAN: PRAVEEN PACHECO DO REASON: CHEST PAIN, HYPERTENSIVE PROCEDURE: CT ANGIOGRAPHY CHEST CTA CHEST INDICATION: CHEST PAIN, HYPERTENSIVE Comparison: None. TECHNIQUE: Following the uneventful administration of intravenous contrast, 100 cc Omnipaque 350, axial CT sections were obtained through the lungs and upper abdomen. Multiplanar reconstructions and MIP images were obtained. PQRS compliance statement: One or more of the following individualized dose reduction techniques were utilized for this examination: 1. Automated exposure control 2. Adjustment of the mA and/or kV according to patient size 3. Use of iterative reconstruction technique FINDINGS: Ulnar arteries: No evidence of pulmonary thromboembolic disease. Lungs and Airways: No pulmonary mass or consolidation. No abnormality of the central airways. Pleura: The pleural spaces are normal. Heart and Mediastinum: The visualized thyroid is normal in size and attenuation. No axillary or supraclavicular lymphadenopathy. No mediastinal, hilar or retrocrural lymphadenopathy. The heart and pericardium are within normal limits. The great vessels of the thorax are normal. Abdomen: Limited images through the upper abdomen show no abnormality of the visualized organs. Bones and Soft Tissues: The visualized bones and chest wall soft tissues are within normal limits. IMPRESSION: 1. No evidence of pulmonary thromboembolic disease. 2. No pulmonary mass or consolidation. Electronically signed by: Cirilo Almonte MD (03/10/2020 10:00 AM) [id number] DICTATED and SIGNED BY: CIRILO ALMONTE MD DATE: 03/10/20 [id number] Course & Med Decision Making: Course & Med Decision Making Pertinent Labs and Imaging studies reviewed. (See chart for details) Patient is a 55-year-old female who presented to ER for evaluation of chest pain, headache. Patient was found to be hypertensive, CT head did not show any acute problem. CTA of the chest did not show any acute problem. Patient continued to have chest pain, her lab work did not show any acute problem so far. Her UA show that she has UTI and trichomonas. Patient will be admitted to hospital for further evaluation and treatment. Dragon Disclaimer: Dragon Disclaimer: This electronic medical record was generated, in whole or in part, using a voice recognition dictation system. Departure Departure Impression: Primary Impression: Chest pain Additional Impressions: Hypertension UTI (urinary tract infection) Trichomonal cystitis Disposition: ADMITTED INPT THIS HOSP Admitting Physician: JOSE LUIS (Dr. AMADO) Condition: STABLE Referrals: NO PCP (PCP) PRVAEEN PACHECO DO Mar 10, 2020 07:43
[2020-03-10] MEDS ORDERED: METOPROLOL IV PUSH 5 MG/5 ML VIAL. IVP ONE (07:45)
[2020-03-10 07:58] LABS: BASO # 0.1 x10^3/uL (0.0-0.2); BASO % 1 % (0-3); EOS # 0.2 x10^3/uL (0.0-0.7); EOS % 2 % (0-3); HEMATOCRIT 41.1 % (36.0-47.0); LYMPH # 2.6 x10^3/uL (1.0-4.8); LYMPH % 32 % (24-48); MEAN CORPUSCULAR HEMOGLOBIN 31 pg (25-35); MEAN CORPUSCULAR HGB CONC 34 g/dL (31-37); MEAN CORPUSCULAR VOLUME 92 fL (79-100); MONO # 0.8 x10^3/uL (0.0-1.1); MONO % 10 % (0-9); NEUT # 4.4 x10^3/uL (1.8-7.7); NEUT % 54 % (31-73); PLATELET COUNT 302 x10^3/uL (140-400); RED BLOOD COUNT 4.46 x10^6/uL (3.50-5.40); RED CELL DISTRIBUTION WIDTH 13.4 % (11.5-14.5)
[2020-03-10 08:09] LABS: CALCIUM 9.1 mg/dL (8.5-10.1); CREATININE 0.9 mg/dL (0.6-1.0); POTASSIUM 4.1 mmol/L (3.5-5.1)
[2020-03-10 08:14] LABS: ALBUMIN 3.5 g/dL (3.4-5.0); ALBUMIN/GLOBULIN RATIO 1.1 (1.0-1.7); MAGNESIUM 2.2 mg/dL (1.8-2.4); TOTAL BILIRUBIN 0.3 mg/dL (0.2-1.0); TOTAL PROTEIN 6.7 g/dL (6.4-8.2)
--- NOTE | 2020-03-10 08:21 | RAD ---
EXAM: CT Head without IV contrast INDICATION: Reason: headache, hypertension, blurry vision / Spl. Instructions: / History: TECHNIQUE: Multi-detector row CT images were obtained of the head without the use of IV contrast. All CT scans performed at this facility utilize dose optimization techniques as appropriate to the exam, including the following: Automated exposure control and adjustment of the mA and/or KV according to patient size (this includes techniques or standardized protocols for targeted exams where dose is ind ication/reason for exam). COMPARISON: None FINDINGS: BRAIN PARENCHYMA: No evidence of acute intraparenchymal hemorrhage or infarct. Mild generalized paren chymal volume loss is present and lacunar infarcts are noted in the caudate head on the left, chronic appearing. There is periventricular white matter low density compatible with chronic ischemic microv ascular change but is nonspecific. VENTRICLES & EXTRA-AXIAL SPACES: Ventricles are within normal limits. Basilar cisterns are patent. N o pathologic extra-axial fluid collection or mass. ORBITS: Orbital contents are unremarkable. SINUSES: Visualized paranasal sinuses and mastoid air cells are clear. OSSEOUS & SOFT TISSUES: Calvarium and skull base are intact but on the inner table of the right squa mous temporal bone is a 3.3 x 2.2 x 3.0 cm ossified extra-axial mass compatible with a meningioma. IMPRESSION: 1. No acute intracranial hemorrhage or infarct. 2. Nonspecific generalized white matter low density that, reflects chronic ischemic microvascular mariella nge. Some component of vasogenic edema can be difficult to exclude. 3. Right squamous temporal bone 3.2 x 2.2 x 3.0 cm ossified mass in the right middle cranial fossa, m ost suggestive of a meningioma. Consider follow-up with MRI in further characterization. EXAM: XR CHEST 1V INDICATION: Reason: headache, hypertension, blurry vision / Spl. Instructions: / History: . TECHNIQUE: Single view COMPARISON: Chest x-ray of 03/30/2019 FINDINGS: The heart size is normal. The great vessels appear unremarkable. There is no hilar or mediastinal mass. The lungs are clear. There is no pleural effusion or pneumothorax. There are no significant osseous abnormalities. IMPRESSION: No active cardiopulmonary disease. Electronically signed by: Stanton Nagel MD (03/10/2020 8:19 AM) [id number]
[2020-03-10] MEDS: NITROGLYCERIN SUBLINGUAL 0.4 MG BOTTLE OF 25. SL PRN ×3 (08:54→09:36)
[2020-03-10] MEDS ORDERED: CONTRAST GIVEN. MC PRN (09:00)
[2020-03-10] MEDS ORDERED: IOHEXOL 350 MG/ML 100 ML VIAL. IV ONE (09:00)
[2020-03-10 09:07] LABS: BILIRUBIN,URINE NEGATIVE (NEG); CLARITY,URINE CLEAR; COLOR,URINE YELLOW; NITRITE,URINE NEGATIVE (NEG); PH,URINE 6.5 (<5.0-8.0); PROTEIN,URINE NEGATIVE (NEG-TRACE)
[2020-03-10 09:15] LABS: TRICHOMONAS,URINE PRESENT
[2020-03-10 09:16] LABS: BACTERIA,URINE FEW /HPF (0-FEW); RBC,URINE OCC /HPF (0-2)
--- NOTE | 2020-03-10 10:03 | RAD ---
CTA CHEST INDICATION: CHEST PAIN, HYPERTENSIVE Comparison: None. TECHNIQUE: Following the uneventful administration of intravenous contrast, 100 cc Omnipaque 350, axi al CT sections were obtained through the lungs and upper abdomen. Multiplanar reconstructions and MIP images were obtained. PQRS compliance statement: One or more of the following individualized dose reduction techniques were utilized for this examinat ion: 1. Automated exposure control 2. Adjustment of the mA and/or kV according to patient size 3. Use of iterative reconstruction technique FINDINGS: Ulnar arteries: No evidence of pulmonary thromboembolic disease. Lungs and Airways: No pulmonary mass or consolidation. No abnormality of the central airways. Pleura: The pleural spaces are normal. Heart and Mediastinum: The visualized thyroid is normal in size and attenuation. No axillary or supra clavicular lymphadenopathy. No mediastinal, hilar or retrocrural lymphadenopathy. The heart and peric ardium are within normal limits. The great vessels of the thorax are normal. Abdomen: Limited images through the upper abdomen show no abnormality of the visualized organs. Bones and Soft Tissues: The visualized bones and chest wall soft tissues are within normal limits. IMPRESSION: 1. No evidence of pulmonary thromboembolic disease. 2. No pulmonary mass or consolidation. Electronically signed by: Tony Almonte MD (03/10/2020 10:00 AM) [id number]
--- NOTE | 2020-03-10 10:33 | EKG ---
[facility] [address] [place] [address] Test Date: 2020-03-10 Test Time: 07:22:13 Pat Name: RANDI LUGO Department: Room: Gender: F Protocol Officer: : 1965 Requested By: PRAVEEN PACHECO Order Number: [id number] Reading MD: Ferny Mayfield MD Measurements Intervals [place] Rate: 77 P: 78 IA: 184 QRS: -23 QRSD: 70 T: 20 QT: 418 QTc: 475 Interpretive Statements SINUS RHYTHM Electronically Signed On 03-11-2020 8:09:26 CIRCUITS ENGINEER by Ferny Mayfield MD
[2020-03-10] MEDS ORDERED: ASPIRIN CHEWABLE 81 MG TABLET. PO ONE (11:00)
[2020-03-10] MEDS ORDERED: cefTRIAXone IV Push 1 GM VIAL. IVP ONE (11:00)
[2020-03-10] MEDS: metroNIDAZOLE 500 MG TABLET PO SCH ×2 (11:13→20:19)
--- NOTE | 2020-03-10 13:32 | PDOC1 ---
History and Physical Date of Service: DOS: DATE: 03/10/20 TIME: 13:25 Chief Complaint: Chief Complain: chest pain History of Present Illness: HPI: 55 year old female who presented to ER for evaluation of chest pain and headache since yesterday. Patient has history of hypertension, she is on Norvasc 5 mg daily. She took her last pill yesterday. Patient complained of headache and blurry vision again when she woke up this morning. She described her chest pain is aching in nature. Patient denies any cough or fever. Patient denies any abdominal pain, no nausea vomiting. Past Medical/Surgical History: PMH/PSH: Past Medical History: Hypertension, TB Past Surgical History: , RIGHT SHOULDER, , RIGHT HAND Allergies: Allergies: Coded Allergies: No Known Drug Allergies (Unverified , 03/10/20) Family History: Family History: Reviewed with no relevant findings Social History: Social History: Smoking Status: Current Every Day Smoker Additional Information: 02/28 ppd Alcohol Use: Occasionally Drug Use: None Current Medications: Current Medications Current Medications Metoprolol Tartrate (Lopressor Vial) 5 mg 1X ONCE IVP Last administered on 03/10/20at 08:10; Start 03/10/20 at 07:45; Stop 03/10/20 at 07:46; Status DC Nitroglycerin (Nitrostat) 0.4 mg PRN Q5MIN PRN SL CHEST PAIN Last administered on 03/10/20at 09:36; Start 03/10/20 at 08:45 Iohexol (Omnipaque 350 Mg/ml) 100 ml 1X ONCE IV Last administered on 03/10/20at 09:05; Start 03/10/20 at 09:00; Stop 03/10/20 at 09:01; Status DC Info (CONTRAST GIVEN -- Rx MONITORING) 1 each PRN DAILY PRN MC SEE COMMENTS; Start 03/10/20 at 09:00; Stop 03/12/20 at 08:59 Aspirin (Aspirin Chewable) 324 mg 1X ONCE PO Last administered on 03/10/20at 11:13; Start 03/10/20 at 11:00; Stop 03/10/20 at 11:01; Status DC Ceftriaxone Sodium (Rocephin) 1 gm 1X ONCE IVP Last administered on 03/10/20at 11:09; Start 03/10/20 at 11:00; Stop 03/10/20 at 11:01; Status DC Metronidazole (Flagyl) 500 mg BID PO Last administered on 03/10/20at 11:13; Start 03/10/20 at 11:00 Active Scripts Active Augmentin 875-125 Tablet (Amoxicillin/Potassium Clav) 1 Each Tablet 1 Tab PO BID 7 Days Norvasc (Amlodipine Besylate) 5 Mg Tablet 1 Tab PO DAILY Miralax (Polyethylene Glycol 3350) 17 Gm Powd.pack 1 Packet PO BID ROS: Review of Systems Review of System REVIEW OF SYSTEMS: GENERAL: Denies weakness SKIN: No bruising, hair changes or rashes. EYES: No blurred, double or loss of vision. NOSE AND THROAT: No history of nosebleeds, hoarseness or sore throat. HEART: No history of palpitations, chest pain or shortness of breath on exertion. LUNGS: Denies cough, hemoptysis, wheezing or shortness of breath. GASTROINTESTINAL: Denies changes in appetite, nausea, vomiting, diarrhea or constipation. GENITOURINARY: No history of frequency, urgency, hesitancy or nocturia. NEUROLOGIC: Denies history of numbness, tingling, or tremor. PSYCHIATRIC: No history of panic, anxiety or depression. ENDOCRINE: No history of heat or cold intolerance, polyuria or polydipsia. EXTREMITIES: Denies joint pain, pain on walking or stiffness. Physical Exam: Vital Signs: Vital Signs Date Time Temp Pulse Resp B/P (MAP) Pulse Ox O2 Delivery O2 Flow Rate FiO2 03/10/20 12:11 66 18 162/80 (107) 98 Room Air 03/10/20 07:28 98.8 98.8 Physcial Exam: GEN: No apparent distress. Alert and oriented HEENT: Normal cephalic, atraumatic, external auditory canals are patent EYES: Extraocular muscles are intact, pupil are equally round and reactive to light and accommodation MUSCULOSKELETAL: Well developed , well nourished, good range of motion ENDOCRINE: No thyromegaly was palpated LYMPHATICS: No cervical chain or axillary nodes were noted HEMATOPOIETIC: No bruising NECK: Supple, no JVD, no thyromegaly was noted LUNGS: Clear to auscultation in all lung yoon without rhonchi or wheezing HEART: RRR, S!, S2 present. Peripheral pulses intact, no obvious murmurs noted ABDOMEN: Soft, nontender. Positive bowel sounds, no organomegaly, normal bowel sounds EXTREMITIES: Without clubbing, cyanosis, or edema. Pedal pulses intact. Negative Homans sign NEUROLOGIC: Normal speech and tone. A&O x 3, moves all extremities, no obvious focal deficits PSYCHIATRIC: Normal affect, normal mood. Stable SKIN: No ulcerations or rashes, good skin turgor, no jaundice VASCULAR: Good capillary refill, neurovascular bundle appears to be intact Labs: Labs: Laboratory Tests Test 03/10/20 07:45 03/10/20 08:45 03/10/20 09:40 03/10/20 11:40 White Blood Count 8.0 x10^3/uL (4.0-11.0) Red Blood Count 4.46 x10^6/uL (3.50-5.40) Hemoglobin 14.0 g/dL (12.0-15.5) Hematocrit 41.1 % (36.0-47.0) Mean Corpuscular Volume 92 fL (79-100) Mean Corpuscular Hemoglobin 31 pg (25-35) Mean Corpuscular Hemoglobin Concent 34 g/dL (31-37) Red Cell Distribution Width 13.4 % (11.5-14.5) Platelet Count 302 x10^3/uL (140-400) Neutrophils (%) (Auto) 54 % (31-73) Lymphocytes (%) (Auto) 32 % (24-48) Monocytes (%) (Auto) 10 % (0-9) Eosinophils (%) (Auto) 2 % (0-3) Basophils (%) (Auto) 1 % (0-3) Neutrophils # (Auto) 4.4 x10^3/uL (1.8-7.7) Lymphocytes # (Auto) 2.6 x10^3/uL (1.0-4.8) Monocytes # (Auto) 0.8 x10^3/uL (0.0-1.1) Eosinophils # (Auto) 0.2 x10^3/uL (0.0-0.7) Basophils # (Auto) 0.1 x10^3/uL (0.0-0.2) Sodium Level 145 mmol/L (136-145) Potassium Level 4.1 mmol/L (3.5-5.1) Chloride Level 108 mmol/L (98-107) Carbon Dioxide Level 27 mmol/L (21-32) Anion Gap 10 (6-14) Blood Urea Nitrogen 16 mg/dL (7-20) Creatinine 0.9 mg/dL (0.6-1.0) Estimated GFR (Cockcroft-Gault) 79.0 BUN/Creatinine Ratio 18 (6-20) Glucose Level 105 mg/dL (70-99) Calcium Level 9.1 mg/dL (8.5-10.1) Magnesium Level 2.2 mg/dL (1.8-2.4) Total Bilirubin 0.3 mg/dL (0.2-1.0) Aspartate Amino Transf (AST/SGOT) 13 U/L (15-37) Alanine Aminotransferase (ALT/SGPT) 23 U/L (14-59) Alkaline Phosphatase 71 U/L (46-116) Troponin I Quantitative < 0.017 ng/mL (0.000-0.055) < 0.017 ng/mL (0.000-0.055) < 0.017 ng/mL (0.000-0.055) KM-Moe-L-Type Natriuretic Peptide 21 pg/mL (0-124) Total Protein 6.7 g/dL (6.4-8.2) Albumin 3.5 g/dL (3.4-5.0) Albumin/Globulin Ratio 1.1 (1.0-1.7) Lipase 147 U/L (73-393) Urine Collection Type Void Urine Color Yellow Urine Clarity Clear Urine pH 6.5 (<5.0-8.0) Urine Specific [place] 1.015 (1.000-1.030) Urine Protein Negative mg/dL (NEG-TRACE) Urine Glucose (UA) Negative mg/dL (NEG) Urine Ketones (Stick) Negative mg/dL (NEG) Urine Blood Negative (NEG) Urine Nitrite Negative (NEG) Urine Bilirubin Negative (NEG) Urine Urobilinogen Dipstick 1.0 mg/dL (0.2 mg/dL) Urine Leukocyte Esterase Moderate (NEG) Urine RBC Occ /HPF (0-2) Urine WBC 5-10 /HPF (0-4) Urine Squamous Epithelial Cells Mod /LPF Urine Bacteria Few /HPF (0-FEW) Urine Mucus Slight /LPF Urine Trichomonas Present Laboratory Tests Test 03/10/20 07:45 03/10/20 08:45 03/10/20 09:40 03/10/20 11:40 White Blood Count 8.0 x10^3/uL (4.0-11.0) Red Blood Count 4.46 x10^6/uL (3.50-5.40) Hemoglobin 14.0 g/dL (12.0-15.5) Hematocrit 41.1 % (36.0-47.0) Mean Corpuscular Volume 92 fL (79-100) Mean Corpuscular Hemoglobin 31 pg (25-35) Mean Corpuscular Hemoglobin Concent 34 g/dL (31-37) Red Cell Distribution Width 13.4 % (11.5-14.5) Platelet Count 302 x10^3/uL (140-400) Neutrophils (%) (Auto) 54 % (31-73) Lymphocytes (%) (Auto) 32 % (24-48) Monocytes (%) (Auto) 10 % (0-9) Eosinophils (%) (Auto) 2 % (0-3) Basophils (%) (Auto) 1 % (0-3) Neutrophils # (Auto) 4.4 x10^3/uL (1.8-7.7) Lymphocytes # (Auto) 2.6 x10^3/uL (1.0-4.8) Monocytes # (Auto) 0.8 x10^3/uL (0.0-1.1) Eosinophils # (Auto) 0.2 x10^3/uL (0.0-0.7) Basophils # (Auto) 0.1 x10^3/uL (0.0-0.2) Sodium Level 145 mmol/L (136-145) Potassium Level 4.1 mmol/L (3.5-5.1) Chloride Level 108 mmol/L (98-107) Carbon Dioxide Level 27 mmol/L (21-32) Anion Gap 10 (6-14) Blood Urea Nitrogen 16 mg/dL (7-20) Creatinine 0.9 mg/dL (0.6-1.0) Estimated GFR (Cockcroft-Gault) 79.0 BUN/Creatinine Ratio 18 (6-20) Glucose Level 105 mg/dL (70-99) Calcium Level 9.1 mg/dL (8.5-10.1) Magnesium Level 2.2 mg/dL (1.8-2.4) Total Bilirubin 0.3 mg/dL (0.2-1.0) Aspartate Amino Transf (AST/SGOT) 13 U/L (15-37) Alanine Aminotransferase (ALT/SGPT) 23 U/L (14-59) Alkaline Phosphatase 71 U/L (46-116) Troponin I Quantitative < 0.017 ng/mL (0.000-0.055) < 0.017 ng/mL (0.000-0.055) < 0.017 ng/mL (0.000-0.055) RJ-Ztz-O-Type Natriuretic Peptide 21 pg/mL (0-124) Total Protein 6.7 g/dL (6.4-8.2) Albumin 3.5 g/dL (3.4-5.0) Albumin/Globulin Ratio 1.1 (1.0-1.7) Lipase 147 U/L (73-393) Urine Collection Type Void Urine Color Yellow Urine Clarity Clear Urine pH 6.5 (<5.0-8.0) Urine Specific [place] 1.015 (1.000-1.030) Urine Protein Negative mg/dL (NEG-TRACE) Urine Glucose (UA) Negative mg/dL (NEG) Urine Ketones (Stick) Negative mg/dL (NEG) Urine Blood Negative (NEG) Urine Nitrite Negative (NEG) Urine Bilirubin Negative (NEG) Urine Urobilinogen Dipstick 1.0 mg/dL (0.2 mg/dL) Urine Leukocyte Esterase Moderate (NEG) Urine RBC Occ /HPF (0-2) Urine WBC 5-10 /HPF (0-4) Urine Squamous Epithelial Cells Mod /LPF Urine Bacteria Few /HPF (0-FEW) Urine Mucus Slight /LPF Urine Trichomonas Present Images: Images CXR Impression: 1. No acute cardiopulmonary process. Negative chest CTA Negative CT of the head Assessment/Plan Assessment/Plan Chest pain concerning for unstable angina/NSTEMI versus STEMI ROSALIA = EKG showing Troponin Continue aspirin, consider Plavix if intermediate risk will defer this to cardiology Cardiology consulted for predischarge stress testing or left heart cath Continue nitroglycerin as needed for pain Continue beta-brooklynn if blood pressures allow Continue high intensity statins IV morphine as needed Consider Lovenox Maintain O2 sats between 88 to 95% Trend troponins Repeat EKG in the a.m. Continue telemetry monitoring Monitor for electrolyte abnormalities Avoid NSAIDs Justifications for Admission Other Justification NORA AMADO MD Mar 10, 2020 13:32
[2020-03-10] MEDS ORDERED: DOCUSATE SODIUM 100 MG CAPSULE. PO PRN (13:45)
[2020-03-10] MEDS ORDERED: DEXTROSE 50% 25 GM / 50ML DISP.SYRIN. IV PRN (13:45)
[2020-03-10] MEDS ORDERED: NITROGLYCERIN SUBLINGUAL 0.4 MG BOTTLE OF 25. SL PRN (13:45)
[2020-03-10] MEDS ORDERED: ONDANSETRON PF 4 MG/2 ML VIAL. IVP PRN (13:45)
[2020-03-10] MEDS ORDERED: SENNOSIDES 8.6 MG TABLET PO PRN (13:45)
[2020-03-10] MEDS ORDERED: ACETAMINOPHEN 325 MG TABLET. PO PRN (13:45)
[2020-03-10] MEDS: MORPHINE SULFATE 2 MG/ML VIAL. IVP PRN ×3 (13:55→19:36)
[2020-03-10] MEDS ORDERED: LABETALOL 20 MG/4 ML DISP.SYRIN. IVP PRN (15:45)
[2020-03-10 16:00] VITALS: BP 157/88
--- NOTE | 2020-03-10 16:31 | PDOC2 ---
LUIS ANGEL JOHNSON NEUROLOGY TEACHER 03/10/20 1630: CARDIAC CONSULT DATE OF CONSULT Date of Consult DATE: 03/10/20 TIME: 16:19 REASON FOR CONSULT Reason for Consult: Chest pain, HTN REFERRING PHYSICIAN Referring Physician: Shaq HISTORY OF PRESENT ILLNESS HISTORY OF PRESENT ILLNESS This is a pleasant 55 yo female admitted for complains of chest pain pain and f all. Reports that she has been having left twisting pain to her left chest to her left scapular region and her left arm. It wasn't like this in the last week but got worse when she fell twice this morning. She was having vertigo at that time, no palpitations but complains of dizziness. Reports that she has an ear infection and was told that the inside of her ear is inflammed on left and was given augmentin but did not fill complaining too expensive. Presently she is unable to lift her left arm past her shoulder with limited ROM. Also at times she forgets to take her norvasc. She smokes tobacco but no recreational drug use. Denies any past CAD, VTE, or arrhythmias and no hx of CVA. No exertional CP or HAYDEN. 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 PAST MEDICAL HISTORY Cardiovascular: HTN Pulmonary: Other (TB) CENTRAL NERVOUS SYSTEM: Other (No pertinent history) GI: Constipation Heme/Onc: No pertinent hx Psych: No pertinent hx Musculoskeletal: Osteoarthritis Rheumatologic: No pertinent hx Infectious disease: No pertinent hx ENT: No pertinent hx Renal/: No pertinent hx Endocrine: No pertinent hx Dermatology: No pertinent hx PAST SURGICAL HISTORY Past Surgical History: Arthroscopy (right shoulder), FAMILY HISTORY Family History noncontributory Family History: Other (mother with scleroderma) SOCIAL HISTORY Smoke: <1 pack per day ALCOHOL: occassional Drugs: None Lives: Alone CURRENT MEDICATIONS CURRENT MEDICATIONS Current Medications Medications (Trade) Dose Ordered Sig/Kimber Route PRN Reason Start Time Stop Time Status Last Admin Dose Admin Metoprolol Tartrate (Lopressor Vial) 5 mg 1X ONCE IVP 03/10/20 07:45 03/10/20 07:46 DC 03/10/20 08:10 Nitroglycerin (Nitrostat) 0.4 mg PRN Q5MIN PRN SL CHEST PAIN 03/10/20 08:45 03/10/20 13:44 DC 03/10/20 09:36 Iohexol (Omnipaque 350 Mg/ml) 100 ml 1X ONCE IV 03/10/20 09:00 03/10/20 09:01 DC 03/10/20 09:05 Aspirin (Aspirin Chewable) 324 mg 1X ONCE PO 03/10/20 11:00 03/10/20 11:01 DC 03/10/20 11:13 Ceftriaxone Sodium (Rocephin) 1 gm 1X ONCE IVP 03/10/20 11:00 03/10/20 11:01 DC 03/10/20 11:09 Metronidazole (Flagyl) 500 mg BID PO 03/10/20 11:00 03/10/20 11:13 Morphine Sulfate (Morphine Sulfate) 2 mg PRN Q2HR PRN IVP SEVERE PAIN 7-10 03/10/20 13:45 03/10/20 13:55 ALLERGIES ALLERGIES: Coded Allergies: No Known Drug Allergies (Unverified , 03/10/20) ROS Review of System 14 point ROS evaluated with pertinent positives noted per HPI PHYSICAL EXAM General: Alert, Oriented X3, Cooperative, No acute distress HEENT: Atraumatic, Mucous membr. moist/pink Lungs: Clear to auscultation, Normal air movement Heart: Regular rate (SR), Normal S1, Normal S2, No murmurs Abdomen: Soft, No tenderness Extremities: No cyanosis, No edema Skin: No breakdown, No significant lesion Neuro: Normal speech, Sensation intact Psych/Mental Status: Mental status NL, Mood NL MUSCULOSKELETAL: Osteoarthritic changes both hands VITALS/I&O VITALS/I&O: Vital Signs Date Time Temp Pulse Resp B/P (MAP) Pulse Ox O2 Delivery O2 Flow Rate FiO2 03/10/20 14:25 58 16 165/95 (118) 98 Room Air 03/10/20 07:28 98.8 98.8 LABS Lab: Laboratory Tests Test 03/10/20 07:45 03/10/20 08:45 03/10/20 09:40 03/10/20 11:40 White Blood Count 8.0 x10^3/uL (4.0-11.0) Red Blood Count 4.46 x10^6/uL (3.50-5.40) Hemoglobin 14.0 g/dL (12.0-15.5) Hematocrit 41.1 % (36.0-47.0) Mean Corpuscular Volume 92 fL (79-100) Mean Corpuscular Hemoglobin 31 pg (25-35) Mean Corpuscular Hemoglobin Concent 34 g/dL (31-37) Red Cell Distribution Width 13.4 % (11.5-14.5) Platelet Count 302 x10^3/uL (140-400) Neutrophils (%) (Auto) 54 % (31-73) Lymphocytes (%) (Auto) 32 % (24-48) Monocytes (%) (Auto) 10 % (0-9) H Eosinophils (%) (Auto) 2 % (0-3) Basophils (%) (Auto) 1 % (0-3) Neutrophils # (Auto) 4.4 x10^3/uL (1.8-7.7) Lymphocytes # (Auto) 2.6 x10^3/uL (1.0-4.8) Monocytes # (Auto) 0.8 x10^3/uL (0.0-1.1) Eosinophils # (Auto) 0.2 x10^3/uL (0.0-0.7) Basophils # (Auto) 0.1 x10^3/uL (0.0-0.2) Sodium Level 145 mmol/L (136-145) Potassium Level 4.1 mmol/L (3.5-5.1) Chloride Level 108 mmol/L (98-107) H Carbon Dioxide Level 27 mmol/L (21-32) Anion Gap 10 (6-14) Blood Urea Nitrogen 16 mg/dL (7-20) Creatinine 0.9 mg/dL (0.6-1.0) Estimated GFR (Cockcroft-Gault) 79.0 BUN/Creatinine Ratio 18 (6-20) Glucose Level 105 mg/dL (70-99) H Calcium Level 9.1 mg/dL (8.5-10.1) Magnesium Level 2.2 mg/dL (1.8-2.4) Total Bilirubin 0.3 mg/dL (0.2-1.0) Aspartate Amino Transferase (AST) 13 U/L (15-37) L Alanine Aminotransferase (ALT) 23 U/L (14-59) Alkaline Phosphatase 71 U/L (46-116) Troponin I Quantitative < 0.017 ng/mL (0.000-0.055) < 0.017 ng/mL (0.000-0.055) < 0.017 ng/mL (0.000-0.055) LY-Lzt-W-Type Natriuretic Peptide 21 pg/mL (0-124) Total Protein 6.7 g/dL (6.4-8.2) Albumin 3.5 g/dL (3.4-5.0) Albumin/Globulin Ratio 1.1 (1.0-1.7) Lipase 147 U/L (73-393) Urine Collection Type Void Urine Color Yellow Urine Clarity Clear Urine pH 6.5 (<5.0-8.0) Urine Specific [place] 1.015 (1.000-1.030) Urine Protein Negative mg/dL (NEG-TRACE) Urine Glucose (UA) Negative mg/dL (NEG) Urine Ketones (Stick) Negative mg/dL (NEG) Urine Blood Negative (NEG) Urine Nitrite Negative (NEG) Urine Bilirubin Negative (NEG) Urine Urobilinogen Dipstick 1.0 mg/dL (0.2 mg/dL) Urine Leukocyte Esterase Moderate (NEG) Urine RBC Occ /HPF (0-2) Urine WBC 5-10 /HPF (0-4) Urine Squamous Epithelial Cells Mod /LPF Urine Bacteria Few /HPF (0-FEW) Urine Mucus Slight /LPF Urine Trichomonas Present Laboratory Tests 03/10/20 07:45 Laboratory Tests 03/10/20 07:45 ASSESSMENT/PLAN ASSESSMENT/PLAN 1. Chest pain: doubt ACS. trops nml EKG SR without acute changes. suspect MSK 2. HTN urgency: takes norvasc at home 3. 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 Obesity 5. Tobaccoism 6. Possible Meningioma per CT 7. UTI/STI: +Trich 8. Possible AOM: prescribed with augmentin but failed to fill 9. Dizziness with fall: suspect due to vertigo recommendations TSH, lipids Smoking cessation Baseline TTE tomorrow Consider left shoulder imaging, limited ROM Restart home norvasc at higher dose. CTA chest reviewed. Labetolol IV PRN Orthostatic readings Antibiotics per PCP ZENIA CASTREJON MD 03/11/20 0809: CARDIAC CONSULT ASSESSMENT/PLAN ASSESSMENT/PLAN Late entry for Pt. seen and examined. 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 Supportive care. LUIS ANGEL JOHNSON NEUROLOGY TEACHER Mar 10, 2020 16:30 ZENIA CASTREJON MD Mar 11, 2020 08:09
[2020-03-10] MEDS ORDERED: amLODIPine BESYLATE 5 MG TABLET PO ONE (17:00)
[2020-03-10] MEDS: ENOXAPARIN 40 MG/0.4 ML SYRINGE. SQ SCH (17:12)
[2020-03-10 19:45] VITALS: BP 161/106
[2020-03-10] MEDS ORDERED: ATORVASTATIN CALCIUM 40 MG TABLET. PO SCH (21:00)
[2020-03-10 22:53] VITALS: BP 136/81
[2020-03-11] MEDS: MORPHINE SULFATE 2 MG/ML VIAL. IVP PRN (01:30)
[2020-03-11 02:58] VITALS: BP 157/93
[2020-03-11 06:54] LABS: BASO # 0.1 x10^3/uL (0.0-0.2); BASO % 1 % (0-3); EOS # 0.2 x10^3/uL (0.0-0.7); EOS % 3 % (0-3); HEMATOCRIT 38.9 % (36.0-47.0); HEMOGLOBIN 13.5 g/dL (12.0-15.5); LYMPH # 3.3 x10^3/uL (1.0-4.8); LYMPH % 38 % (24-48); MEAN CORPUSCULAR HEMOGLOBIN 32 pg (25-35); MEAN CORPUSCULAR HGB CONC 35 g/dL (31-37); MEAN CORPUSCULAR VOLUME 92 fL (79-100); MONO # 0.8 x10^3/uL (0.0-1.1); MONO % 9 % (0-9); NEUT # 4.2 x10^3/uL (1.8-7.7); NEUT % 49 % (31-73); PLATELET COUNT 276 x10^3/uL (140-400); RED BLOOD COUNT 4.21 x10^6/uL (3.50-5.40); WHITE BLOOD COUNT 8.5 x10^3/uL (4.0-11.0)
[2020-03-11 07:10] LABS: CALCIUM 8.8 mg/dL (8.5-10.1); CREATININE 0.9 mg/dL (0.6-1.0); MAGNESIUM 2.3 mg/dL (1.8-2.4); PHOSPHORUS 4.7 mg/dL (2.6-4.7); POTASSIUM 3.9 mmol/L (3.5-5.1)
[2020-03-11 07:17] LABS: CHOLESTEROL/HDL RATIO 4.9
[2020-03-11 07:28] VITALS: BP 130/81
[2020-03-11] MEDS ORDERED: ASPIRIN ENTERIC COATED 81 MG TABLET.DR. PO SCH (08:00)
--- NOTE | 2020-03-11 08:26 | PDOC ---
[facility] PROGRESS NOTE Date of Service DOS: DATE: 03/11/20 TIME: 08:23 Chief Complaint Chief Complaint Chest pain, HTN, UTI History of Present Illness History of Present Illness 03/11 -Patient seen and examined -JANET RN -Chart reviewed Vitals/I&O Vitals/I&O: Vital Signs Date Time Temp Pulse Resp B/P (MAP) Pulse Ox O2 Delivery O2 Flow Rate FiO2 03/11/20 08:00 Room Air 03/11/20 07:28 98.0 65 16 130/81 (97) 98 98.0 I & O 03/10/20 03/10/20 03/11/20 15:00 23:00 07:00 Intake Total 800 ml 700 ml Balance 800 ml 700 ml Physical Exam General: Alert, Oriented X3, Cooperative, No acute distress Heart: Regular rate (SR), Normal S1, Normal S2, No murmurs Abdomen: Soft, No tenderness Extremities: No cyanosis, No edema Skin: No breakdown, No significant lesion Labs Labs: Laboratory Tests Test 03/10/20 08:45 03/10/20 09:40 03/10/20 11:40 03/11/20 05:55 Urine Collection Type Void Urine Color Yellow Urine Clarity Clear Urine pH 6.5 (<5.0-8.0) Urine Specific [place] 1.015 (1.000-1.030) Urine Protein Negative mg/dL (NEG-TRACE) Urine Glucose (UA) Negative mg/dL (NEG) Urine Ketones (Stick) Negative mg/dL (NEG) Urine Blood Negative (NEG) Urine Nitrite Negative (NEG) Urine Bilirubin Negative (NEG) Urine Urobilinogen Dipstick 1.0 mg/dL (0.2 mg/dL) Urine Leukocyte Esterase Moderate (NEG) Urine RBC Occ /HPF (0-2) Urine WBC 5-10 /HPF (0-4) Urine Squamous Epithelial Cells Mod /LPF Urine Bacteria Few /HPF (0-FEW) Urine Mucus Slight /LPF Urine Trichomonas Present Troponin I Quantitative < 0.017 ng/mL (0.000-0.055) < 0.017 ng/mL (0.000-0.055) Thyroid Stimulating Hormone (TSH) 1.239 uIU/mL (0.358-3.74) White Blood Count 8.5 x10^3/uL (4.0-11.0) Red Blood Count 4.21 x10^6/uL (3.50-5.40) Hemoglobin 13.5 g/dL (12.0-15.5) Hematocrit 38.9 % (36.0-47.0) Mean Corpuscular Volume 92 fL (79-100) Mean Corpuscular Hemoglobin 32 pg (25-35) Mean Corpuscular Hemoglobin Concent 35 g/dL (31-37) Red Cell Distribution Width 13.0 % (11.5-14.5) Platelet Count 276 x10^3/uL (140-400) Neutrophils (%) (Auto) 49 % (31-73) Lymphocytes (%) (Auto) 38 % (24-48) Monocytes (%) (Auto) 9 % (0-9) Eosinophils (%) (Auto) 3 % (0-3) Basophils (%) (Auto) 1 % (0-3) Neutrophils # (Auto) 4.2 x10^3/uL (1.8-7.7) Lymphocytes # (Auto) 3.3 x10^3/uL (1.0-4.8) Monocytes # (Auto) 0.8 x10^3/uL (0.0-1.1) Eosinophils # (Auto) 0.2 x10^3/uL (0.0-0.7) Basophils # (Auto) 0.1 x10^3/uL (0.0-0.2) Sodium Level 141 mmol/L (136-145) Potassium Level 3.9 mmol/L (3.5-5.1) Chloride Level 107 mmol/L (98-107) Carbon Dioxide Level 26 mmol/L (21-32) Anion Gap 8 (6-14) Blood Urea Nitrogen 13 mg/dL (7-20) Creatinine 0.9 mg/dL (0.6-1.0) Estimated GFR (Cockcroft-Gault) 79.0 Glucose Level 106 mg/dL (70-99) Calcium Level 8.8 mg/dL (8.5-10.1) Phosphorus Level 4.7 mg/dL (2.6-4.7) Magnesium Level 2.3 mg/dL (1.8-2.4) Triglycerides Level 147 mg/dL (0-150) Cholesterol Level 221 mg/dL (0-200) LDL Cholesterol, Calculated 147 mg/dL (0-100) VLDL Cholesterol, Calculated 29 mg/dL (0-40) Non-HDL Cholesterol Calculated 176 mg/dL (0-129) HDL Cholesterol 45 mg/dL (40-60) Cholesterol/HDL Ratio 4.9 Review of Systems Review of Systems: No edema, no ecchymosis Assessment and Plan Assessmemt and Plan Problems Medical Problems: (1) Chest pain Status: Acute (2) Hypertension Status: Acute (3) Trichomonal cystitis Status: Acute (4) UTI (urinary tract infection) Status: Acute 03/11 A: -Chest pain -HTN -UTI P: -health physicist -Serial EKG -Serial cardiac enzymes -Await cardiac input -DVT prophylaxis -Full code -Home meds -Appreciate sub-specialist input Comment Review of Relevant I have reviewed the following items favian (where applicable) has been applied. Medications: Current Medications Medications (Trade) Dose Ordered Sig/Kimber Route PRN Reason Start Time Stop Time Status Last Admin Dose Admin Nitroglycerin (Nitrostat) 0.4 mg PRN Q5MIN PRN SL CHEST PAIN 03/10/20 08:45 03/10/20 13:44 DC 03/10/20 09:36 Iohexol (Omnipaque 350 Mg/ml) 100 ml 1X ONCE IV 03/10/20 09:00 03/10/20 09:01 DC 03/10/20 09:05 Aspirin (Aspirin Chewable) 324 mg 1X ONCE PO 03/10/20 11:00 03/10/20 11:01 DC 03/10/20 11:13 Ceftriaxone Sodium (Rocephin) 1 gm 1X ONCE IVP 03/10/20 11:00 03/10/20 11:01 DC 03/10/20 11:09 Metronidazole (Flagyl) 500 mg BID PO 03/10/20 11:00 03/10/20 20:19 Atorvastatin Calcium (Lipitor) 40 mg QHS PO 03/10/20 21:00 03/10/20 20:19 Morphine Sulfate (Morphine Sulfate) 2 mg PRN Q2HR PRN IVP SEVERE PAIN 7-10 03/10/20 13:45 03/11/20 01:30 Enoxaparin Sodium (Lovenox 40mg Syringe) 40 mg Q24H SQ 03/10/20 15:00 03/10/20 17:12 Amlodipine Besylate (Norvasc) 10 mg 1X ONCE PO 03/10/20 17:00 03/10/20 17:01 DC 03/10/20 17:13 Justifications for Admission Chest Pain Indications Serious Diagnosis?: Yes Justification for admission: Chest pain may be indicative of potentially serious diagnosis/diagnoses Please state condition(s) which will require inpatient level of care for further evaluation and management. Other Justification chest pain VIJI PAYAN III DO Mar 11, 2020 08:26
--- NOTE | 2020-03-11 08:29 | PDOC ---
[employer] PROGRESS NOTE Date of Service DOS: DATE: 03/11/20 TIME: 08:27 Chief Complaint Chief Complaint Chest pain, HTN, UTI History of Present Illness History of Present Illness 03/11 -Patient seen and examined -JANET RN -Chart reviewed Vitals/I&O Vitals/I&O: Vital Signs Date Time Temp Pulse Resp B/P (MAP) Pulse Ox O2 Delivery O2 Flow Rate FiO2 03/11/20 08:00 Room Air 03/11/20 07:28 98.0 65 16 130/81 (97) 98 98.0 I & O 03/10/20 03/10/20 03/11/20 15:00 23:00 07:00 Intake Total 800 ml 700 ml Balance 800 ml 700 ml Physical Exam General: Alert, Oriented X3, Cooperative, No acute distress Heart: Regular rate (SR), Normal S1, Normal S2, No murmurs Abdomen: Soft, No tenderness Extremities: No cyanosis, No edema Skin: No breakdown, No significant lesion Labs Labs: Laboratory Tests Test 03/10/20 08:45 03/10/20 09:40 03/10/20 11:40 03/11/20 05:55 Urine Collection Type Void Urine Color Yellow Urine Clarity Clear Urine pH 6.5 (<5.0-8.0) Urine Specific [place] 1.015 (1.000-1.030) Urine Protein Negative mg/dL (NEG-TRACE) Urine Glucose (UA) Negative mg/dL (NEG) Urine Ketones (Stick) Negative mg/dL (NEG) Urine Blood Negative (NEG) Urine Nitrite Negative (NEG) Urine Bilirubin Negative (NEG) Urine Urobilinogen Dipstick 1.0 mg/dL (0.2 mg/dL) Urine Leukocyte Esterase Moderate (NEG) Urine RBC Occ /HPF (0-2) Urine WBC 5-10 /HPF (0-4) Urine Squamous Epithelial Cells Mod /LPF Urine Bacteria Few /HPF (0-FEW) Urine Mucus Slight /LPF Urine Trichomonas Present Troponin I Quantitative < 0.017 ng/mL (0.000-0.055) < 0.017 ng/mL (0.000-0.055) Thyroid Stimulating Hormone (TSH) 1.239 uIU/mL (0.358-3.74) White Blood Count 8.5 x10^3/uL (4.0-11.0) Red Blood Count 4.21 x10^6/uL (3.50-5.40) Hemoglobin 13.5 g/dL (12.0-15.5) Hematocrit 38.9 % (36.0-47.0) Mean Corpuscular Volume 92 fL (79-100) Mean Corpuscular Hemoglobin 32 pg (25-35) Mean Corpuscular Hemoglobin Concent 35 g/dL (31-37) Red Cell Distribution Width 13.0 % (11.5-14.5) Platelet Count 276 x10^3/uL (140-400) Neutrophils (%) (Auto) 49 % (31-73) Lymphocytes (%) (Auto) 38 % (24-48) Monocytes (%) (Auto) 9 % (0-9) Eosinophils (%) (Auto) 3 % (0-3) Basophils (%) (Auto) 1 % (0-3) Neutrophils # (Auto) 4.2 x10^3/uL (1.8-7.7) Lymphocytes # (Auto) 3.3 x10^3/uL (1.0-4.8) Monocytes # (Auto) 0.8 x10^3/uL (0.0-1.1) Eosinophils # (Auto) 0.2 x10^3/uL (0.0-0.7) Basophils # (Auto) 0.1 x10^3/uL (0.0-0.2) Sodium Level 141 mmol/L (136-145) Potassium Level 3.9 mmol/L (3.5-5.1) Chloride Level 107 mmol/L (98-107) Carbon Dioxide Level 26 mmol/L (21-32) Anion Gap 8 (6-14) Blood Urea Nitrogen 13 mg/dL (7-20) Creatinine 0.9 mg/dL (0.6-1.0) Estimated GFR (Cockcroft-Gault) 79.0 Glucose Level 106 mg/dL (70-99) Calcium Level 8.8 mg/dL (8.5-10.1) Phosphorus Level 4.7 mg/dL (2.6-4.7) Magnesium Level 2.3 mg/dL (1.8-2.4) Triglycerides Level 147 mg/dL (0-150) Cholesterol Level 221 mg/dL (0-200) LDL Cholesterol, Calculated 147 mg/dL (0-100) VLDL Cholesterol, Calculated 29 mg/dL (0-40) Non-HDL Cholesterol Calculated 176 mg/dL (0-129) HDL Cholesterol 45 mg/dL (40-60) Cholesterol/HDL Ratio 4.9 Assessment and Plan Assessmemt and Plan Problems Medical Problems: (1) Chest pain Status: Acute (2) Hypertension Status: Acute (3) Trichomonal cystitis Status: Acute (4) UTI (urinary tract infection) Status: Acute 03/11 A: -Chest pain -HTN -UTI P: -Serial EKG -Serial cardiac enzymes -DVT prophylaxis -Await cardiac input -Full code -Home meds Comment Review of Relevant I have reviewed the following items favian (where applicable) has been applied. Medications: Current Medications Medications (Trade) Dose Ordered Sig/Kimber Route PRN Reason Start Time Stop Time Status Last Admin Dose Admin Nitroglycerin (Nitrostat) 0.4 mg PRN Q5MIN PRN SL CHEST PAIN 03/10/20 08:45 03/10/20 13:44 DC 03/10/20 09:36 Iohexol (Omnipaque 350 Mg/ml) 100 ml 1X ONCE IV 03/10/20 09:00 03/10/20 09:01 DC 03/10/20 09:05 Aspirin (Aspirin Chewable) 324 mg 1X ONCE PO 03/10/20 11:00 03/10/20 11:01 DC 03/10/20 11:13 Ceftriaxone Sodium (Rocephin) 1 gm 1X ONCE IVP 03/10/20 11:00 03/10/20 11:01 DC 03/10/20 11:09 Metronidazole (Flagyl) 500 mg BID PO 03/10/20 11:00 03/10/20 20:19 Atorvastatin Calcium (Lipitor) 40 mg QHS PO 03/10/20 21:00 03/10/20 20:19 Morphine Sulfate (Morphine Sulfate) 2 mg PRN Q2HR PRN IVP SEVERE PAIN 7-10 03/10/20 13:45 03/11/20 01:30 Enoxaparin Sodium (Lovenox 40mg Syringe) 40 mg Q24H SQ 03/10/20 15:00 03/10/20 17:12 Amlodipine Besylate (Norvasc) 10 mg 1X ONCE PO 03/10/20 17:00 03/10/20 17:01 DC 03/10/20 17:13 Justifications for Admission Chest Pain Indications Serious Diagnosis?: Yes Justification for admission: Chest pain may be indicative of potentially serious diagnosis/diagnoses Please state condition(s) which will require inpatient level of care for further evaluation and management. Other Justification chest pain VIJI PAYAN III DO Mar 11, 2020 08:28
[2020-03-11] MEDS: metroNIDAZOLE 500 MG TABLET PO SCH (08:38)
[2020-03-11] MEDS ORDERED: amLODIPine BESYLATE 10 MG TABLET PO SCH (09:00)
[2020-03-11 11:00] VITALS: BP 130/70
--- NOTE | 2020-03-11 13:28 | PDOC ---
CARDIO Progress Notes Date and Time Date of Service 03/11/2020 Time of Evaluation 1010 Subjective Subjective: No Chest Pain, No shortness of breath, No Palpitations Vitals Vitals Vital Signs Date Time Temp Pulse Resp B/P (MAP) Pulse Ox O2 Delivery O2 Flow Rate FiO2 03/11/20 11:00 98.1 65 18 130/70 (90) 97 Room Air 98.1 Weight Weight [ ] Input and Output Intake and Output Intake and Output 03/11/20 07:00 Intake Total 1500 ml Balance 1500 ml Intake Oral 1500 ml # Voids 1 Laboratory Labs Laboratory Tests Test 03/11/20 05:55 White Blood Count 8.5 x10^3/uL (4.0-11.0) Red Blood Count 4.21 x10^6/uL (3.50-5.40) Hemoglobin 13.5 g/dL (12.0-15.5) Hematocrit 38.9 % (36.0-47.0) Mean Corpuscular Volume 92 fL (79-100) Mean Corpuscular Hemoglobin 32 pg (25-35) Mean Corpuscular Hemoglobin Concent 35 g/dL (31-37) Red Cell Distribution Width 13.0 % (11.5-14.5) Platelet Count 276 x10^3/uL (140-400) Neutrophils (%) (Auto) 49 % (31-73) Lymphocytes (%) (Auto) 38 % (24-48) Monocytes (%) (Auto) 9 % (0-9) Eosinophils (%) (Auto) 3 % (0-3) Basophils (%) (Auto) 1 % (0-3) Neutrophils # (Auto) 4.2 x10^3/uL (1.8-7.7) Lymphocytes # (Auto) 3.3 x10^3/uL (1.0-4.8) Monocytes # (Auto) 0.8 x10^3/uL (0.0-1.1) Eosinophils # (Auto) 0.2 x10^3/uL (0.0-0.7) Basophils # (Auto) 0.1 x10^3/uL (0.0-0.2) Sodium Level 141 mmol/L (136-145) Potassium Level 3.9 mmol/L (3.5-5.1) Chloride Level 107 mmol/L (98-107) Carbon Dioxide Level 26 mmol/L (21-32) Anion Gap 8 (6-14) Blood Urea Nitrogen 13 mg/dL (7-20) Creatinine 0.9 mg/dL (0.6-1.0) Estimated GFR (Cockcroft-Gault) 79.0 Glucose Level 106 mg/dL (70-99) Calcium Level 8.8 mg/dL (8.5-10.1) Phosphorus Level 4.7 mg/dL (2.6-4.7) Magnesium Level 2.3 mg/dL (1.8-2.4) Triglycerides Level 147 mg/dL (0-150) Cholesterol Level 221 mg/dL (0-200) LDL Cholesterol, Calculated 147 mg/dL (0-100) VLDL Cholesterol, Calculated 29 mg/dL (0-40) Non-HDL Cholesterol Calculated 176 mg/dL (0-129) HDL Cholesterol 45 mg/dL (40-60) Cholesterol/HDL Ratio 4.9 Microbiology Micro Microbiology 03/10/20 Urine Culture - Final, Complete Physical Exam HEENT: Neck Supple W Full Motion Chest: Symmetric LUNGS: Clear to Auscultation Heart: S1S2, RRR (SR) Abdomen: Soft N/T Extremities: No Calf Tenderness Neurology: alert, oriented, follow commands Assessment Assessment 1. Chest pain: doubt ACS, suspect MSK. trops nml EKG SR without acute changes. EF and WM nml 2. HTN urgency: much better with norvasc 3. 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 Obesity 5. Tobaccoism 6. Possible Meningioma per CT 7. UTI/STI: +Trich 8. Possible AOM: prescribed with augmentin but failed to fill 9. Dizziness with fall: suspect due to vertigo, still having intermittent episodes 10. P Recommendations Smoking cessation, dietitian consult. Consider statin if LDL remains elevated post lifestyle modification Consider left shoulder imaging, limited ROM Continue norvasc at mg daily Antibiotics per PCP Nothing further cardiac tapia Justicifation of Admission Dx: Justifications for Admission: Justification of Admission Dx: Yes LUIS ANGEL JOHNSON DRIVER MESSENGER Mar 11, 2020 13:28
--- NOTE | 2020-03-11 14:23 | CARD ---
MR#: [id number] Date of Study: 03/11/2020 Ordering Physician: LUIS ANGEL JOHNSON, Referring Physician: LUIS ANGEL JOHNSON, Tech: Carissa Boyd APPROVED REPORT EXAM: Two-dimensional and M-mode echocardiogram with Doppler and color Doppler. Other Information Quality : AverageHR: 61bpm INDICATION Chest Pain Pre-syncope RISK FACTORS Hypertension 2D DIMENSIONS RVDd2.8 (2.9-3.5cm)Left Atrium(2D)2.9 (1.6-4.0cm) IVSd0.9 (0.7-1.1cm)Aortic Root(2D)2.7 (2.0-3.7cm) LVDd4.4 (3.9-5.9cm)LVOT Diameter2.0 (1.8-2.4cm) PWd0.8 (0.7-1.1cm)LVDs3.2 (2.5-4.0cm) FS (%) 28.7 %SV49.3 ml LVEF(%)55.4 (>50%) Aortic Valve AoV Peak Wiliam.131.8cm/sAoV VTI26.8cm AO Peak GR.6.9mmHgLVOT Peak Wiliam.114.4cm/s LVOT VTI 25.79cmAO Mean GR.4mmHg MOSHE (VMAX)2.16os2HMD (VTI)3.03cm2 Mitral Valve MV E Znrlrihl94.9cm/sMV DECEL BLFP452rm MV A Ixvnskzu84.8cm/sMV APJ21oc E/A Ratio1.0MVA (PHT)2.93cm2 TDI E/Lateral E'9.1E/Medial E'8.8 Pulmonary Valve PV Peak Yywhnvyn66.6cm/sPV Peak Grad.3mmHg Tricuspid Valve TR P. Xhibpjqu649at/sRAP SEGRTCCX0zeUb TR Peak Gr.55cuEbWVCC54mxTr Pulmonary Vein S1 Vuefgtvu57.4cm/sD2 Fbsaedna76.3cm/s PVa susmpwfz929hvjv LEFT VENTRICLE The left ventricle is normal size. There is normal left ventricular wall thickness. The Ejection Frac tion is 50-55%. The left ventricular systolic function is normal and the ejection fraction is within normal range. There is normal LV segmental wall motion. Transmitral Doppler flow pattern is Grade I-a bnormal relaxation pattern. RIGHT VENTRICLE The right ventricle is normal size. There is normal right ventricular wall thickness. The right ventr icular systolic function is normal. ATRIA The left atrium size is normal. The right atrium size is normal. The interatrial septum is intact wit h no evidence for an atrial septal defect or patent foramen ovale as noted on 2-D or Doppler imaging. AORTIC VALVE The aortic valve is thickened but opens well. Doppler and Color Flow revealed no significant aortic r egurgitation. There is no significant aortic valvular stenosis. Calculated aortic valve area is 2.83 cm2 with maximum pressure gradient of 7 mmHg and mean pressure gradient of 4 mmHg. MITRAL VALVE The mitral valve is normal in structure and function. There is no evidence of mitral valve prolapse. There is no mitral valve stenosis. Doppler and Color-flow revealed trace mitral regurgitation. TRICUSPID VALVE The tricuspid valve is normal in structure and function. Doppler and Color Flow revealed trace tricus pid regurgitation with an estimated PAP of 19 mmHg. There is no tricuspid valve stenosis. PULMONIC VALVE The pulmonic valve is not well visualized. Doppler and Color Flow revealed no pulmonic valvular regur gitation. There is no pulmonic valvular stenosis. GREAT VESSELS The aortic root is normal in size. The IVC is normal in size and collapses >50% with inspiration. PERICARDIAL EFFUSION There is no evidence of significant pericardial effusion. Critical Notification Critical Value: No <Conclusion> The Ejection Fraction is 50-55%. The left ventricular systolic function is normal and the ejection fr action is within normal range. There is normal LV segmental wall motion. Signed by : Ferny Mayfield, Electronically Approved : 03/11/2020 14:22:54
[2020-03-11 14:40] VITALS: BP 112/70
--- NOTE | 2020-03-11 14:54 | NUR ---
SS following for discharge planning. SS reviewed pt chart and discussed with pt RN. Pt is from home and is currently on room air. Discharge order on the chart for home with self care.
[2020-03-11] MEDS: ENOXAPARIN 40 MG/0.4 ML SYRINGE. SQ SCH (15:00)
[2020-03-11] MEDS ORDERED: METR500T PO (15:31)
--- NOTE | 2020-03-11 15:42 | NUR ---
Discharge Note: RANDI LUGO Discharge instructions and discharge home medications reviewed with Patient and a copy given. All questions have been answered and understanding verbalized. Prescription called into patient pharmacy.
== END 2020-03-11 15:46 | disposition home or self-care (01) ==
LOC: ER 07:10 → ED HOLD 12:02 → 2 NORTH 15:17
PROVIDERS: ADMIT Internal Medicine; ATTEND Internal Medicine
DX: R07.89 Other chest pain (principal); I16.0 Hypertensive urgency; F17.210 Nicotine dependence, cigarettes, uncomplicated; N39.0 Urinary tract infection, site not specified; A59.03 Trichomonal cystitis and urethritis; E66.9 Obesity, unspecified; M19.90 Unspecified osteoarthritis, unspecified site; K59.00 Constipation, unspecified; E78.5 Hyperlipidemia, unspecified; Z98.891 History of uterine scar from previous surgery; Z79.82 Long term (current) use of aspirin; Z79.02 Long term (current) use of antithrombotics/antiplatelets; Z68.32 Body mass index [BMI] 32.0-32.9, adult; Z98.890 Other specified postprocedural states; W19.XXXA Unspecified fall, initial encounter; Y93.89 Activity, other specified; Y92.89 Other specified places as the place of occurrence of the external cause; Y99.8 Other external cause status
CPT/HCPCS: 36415; 70450; 71045; 71275; 80048; 80053; 80061; 81001; 83690; 83735; 83880; 84100; 84443; 84484; 85025; 87086; 93005; 93306; 96372; 96374; 96375; 96376; 97110; 97162; 97166; 97535; 99285; G0378; J0696; J1650; J2270; J3490; Q9967; G0379

== ENCOUNTER 2020-04-06 08:56 | Emergency (ER) | payer BC ==
[~2020-04-06] VITALS: Ht 172.7 cm; Wt 72.0 kg
[~2020-04-06 08:56] MED LIST changes: +METR500T PO
[2020-04-06 09:54] LABS: BASO # 0.1 x10^3/uL (0.0-0.2); BASO % 1 % (0-3); EOS # 0.1 x10^3/uL (0.0-0.7); EOS % 1 % (0-3); HEMATOCRIT 40.3 % (36.0-47.0); HEMOGLOBIN 13.9 g/dL (12.0-15.5); LYMPH # 2.7 x10^3/uL (1.0-4.8); LYMPH % 26 % (24-48); MEAN CORPUSCULAR HEMOGLOBIN 32 pg (25-35); MEAN CORPUSCULAR HGB CONC 35 g/dL (31-37); MEAN CORPUSCULAR VOLUME 92 fL (79-100); MONO % 10 % (0-9); NEUT # 6.5 x10^3/uL (1.8-7.7); NEUT % 63 % (31-73); PLATELET COUNT 308 x10^3/uL (140-400); RED BLOOD COUNT 4.37 x10^6/uL (3.50-5.40); RED CELL DISTRIBUTION WIDTH 13.1 % (11.5-14.5); WHITE BLOOD COUNT 10.5 x10^3/uL (4.0-11.0)
--- NOTE | 2020-04-06 10:00 | RAD ---
EXAM: XR CHEST 1V 04/06/2020 9:23 AM CLINICAL INDICATION: Chest pain COMPARISON: Chest radiograph 03/10/2020 TECHNIQUE: AP view of the chest FINDINGS: The heart and mediastinum are normal. Lungs are well-expanded and clear. No consolidatio n, pleural effusion, or pneumothorax. Pulmonary vascularity is normal. The thoracic skeleton is int act. IMPRESSION: Normal chest radiograph. Electronically signed by: Stephanie Hunt MD (04/06/2020 9:57 AM) [id number]
[2020-04-06 10:04] LABS: CREATININE 0.9 mg/dL (0.6-1.0); POTASSIUM 3.8 mmol/L (3.5-5.1)
--- NOTE | 2020-04-06 10:09 | PHYS DOC ---
Past Medical History Past Medical History: Hypertension, TB Additional Past Medical Histor: TB Past Surgical History: Additional Past Surgical Histo: RIGHT SHOULDER, , RIGHT HAND Smoking Status: Current Every Day Smoker Alcohol Use: Occasionally Drug Use: None General Adult EDM: Chief Complaint: CHEST PAIN HPI: HPI: Patient is a 55 year old female who presented to ER with left-sided chest pain, aching in nature, patient has some spasm spell as well since waking up this morning. Patient was evaluated here last month for the same problem, she was admitted to the hospital, she was seen by solar sales specialist, had an echocardiogram done and it showed normal EF of 55 to 60%. Patient has history of hypertension, denies any history of diabetes or any history of heart disease. Patient denies any cough or fever. Patient denies any recent travel or operation. Patient denies any exposure to anybody who can have infected with COVID-19. Review of Systems: Review of Systems: Constitutional: Denies fever or chills. [] Eyes: Denies change in visual acuity. [] HENT: Denies nasal congestion or sore throat. [] Respiratory: Denies cough or shortness of breath. [] Cardiovascular: Positive for chest pain, no edema [] GI: Denies abdominal pain, nausea, vomiting, bloody stools or diarrhea. [] : Denies dysuria. [] Musculoskeletal: Denies back pain or joint pain. [] Integument: Denies rash. [] Neurologic: Denies headache, focal weakness or sensory changes. [] Endocrine: Denies polyuria or polydipsia. [] Lymphatic: Denies swollen glands. [] Psychiatric: Denies depression or anxiety. [] Heart Score: HEART Score for Chest Pain: HEART Score for Chest Pain Response (Comments) Value History Slighlty/Non-Suspicious 0 ECG Normal 0 Age >45 - < 65 1 Risk Factors 1 or 2 Risk Factors 1 Troponin < Normal Limit 0 Total 2 Risk Factors: Risk Factors: DM, Current or recent (<one month) smoker, HTN, HLP, family history of CAD, obesity. Risk Scores: Score 0 - 3: 2.5% MACE over next 6 weeks - Discharge Home Score 4 - 6: 20.3% MACE over next 6 weeks - Admit for Clinical Observation Score 7 - 10: 72.7% MACE over next 6 weeks - Early Invasive Strategies Allergies: Allergies: Allergies Coded Allergies Type Severity Reaction Last Updated Verified No Known Drug Allergies 03/10/20 No Physical Exam: PE: Constitutional: Well developed, well nourished, no acute distress, non-toxic appearance. [] HENT: Normocephalic, atraumatic, bilateral external ears normal, oropharynx moist, no oral exudates, nose normal. [] Eyes: PERRLA, EOMI, conjunctiva normal, no discharge. [] Neck: Normal range of motion, no tenderness, supple, no stridor. [] Cardiovascular:Heart rate regular rhythm, no murmur. Chest pain reproducible to palpation. Lungs & Thorax: Bilateral breath sounds clear to auscultation [] Abdomen: Bowel sounds normal, soft, no tenderness, no masses, no pulsatile masses. [] Skin: Warm, dry, no erythema, no rash. [] Back: No tenderness, no CVA tenderness. [] Extremities: No tenderness, no cyanosis, no clubbing, ROM intact, no edema. [] Neurologic: Alert and oriented X 3, normal motor function, normal sensory function, no focal deficits noted. [] Psychologic: Affect normal, judgement normal, mood normal. [] Current Patient Data: Labs: Laboratory Tests Test 04/06/20 05:45 White Blood Count 10.5 x10^3/uL (4.0-11.0) Red Blood Count 4.37 x10^6/uL (3.50-5.40) Hemoglobin 13.9 g/dL (12.0-15.5) Hematocrit 40.3 % (36.0-47.0) Mean Corpuscular Volume 92 fL (79-100) Mean Corpuscular Hemoglobin 32 pg (25-35) Mean Corpuscular Hemoglobin Concent 35 g/dL (31-37) Red Cell Distribution Width 13.1 % (11.5-14.5) Platelet Count 308 x10^3/uL (140-400) Neutrophils (%) (Auto) 63 % (31-73) Lymphocytes (%) (Auto) 26 % (24-48) Monocytes (%) (Auto) 10 % (0-9) H Eosinophils (%) (Auto) 1 % (0-3) Basophils (%) (Auto) 1 % (0-3) Neutrophils # (Auto) 6.5 x10^3/uL (1.8-7.7) Lymphocytes # (Auto) 2.7 x10^3/uL (1.0-4.8) Monocytes # (Auto) 1.0 x10^3/uL (0.0-1.1) Eosinophils # (Auto) 0.1 x10^3/uL (0.0-0.7) Basophils # (Auto) 0.1 x10^3/uL (0.0-0.2) Sodium Level 141 mmol/L (136-145) Potassium Level 3.8 mmol/L (3.5-5.1) Chloride Level 106 mmol/L (98-107) Carbon Dioxide Level 25 mmol/L (21-32) Anion Gap 10 (6-14) Blood Urea Nitrogen 17 mg/dL (7-20) Creatinine 0.9 mg/dL (0.6-1.0) Estimated GFR (Cockcroft-Gault) 79.0 BUN/Creatinine Ratio 19 (6-20) Glucose Level 107 mg/dL (70-99) H Calcium Level 9.0 mg/dL (8.5-10.1) Magnesium Level Pending Total Bilirubin Pending Aspartate Amino Transferase (AST) Pending Alanine Aminotransferase (ALT) Pending Alkaline Phosphatase Pending Total Protein Pending Albumin Pending Albumin/Globulin Ratio Pending Lipase Pending Laboratory Tests 04/06/20 05:45 Laboratory Tests 04/06/20 05:45 Vital Signs: Vital Signs Date Time Temp Pulse Resp B/P (MAP) Pulse Ox O2 Delivery O2 Flow Rate FiO2 04/06/20 09:00 98.2 81 16 179/95 (123) 98 Room Air 98.2 EKG: EKG: EKG was done at 904, heart rate 87 bpm, sinus rhythm, no ST segment elevation. Radiology/Procedures: Radiology/Procedures: [][facility] [address] [place] [address] IMAGING REPORT Signed PATIENT: RANDI LUGO ACCOUNT: [id number] : 1965 LOCATION: ER AGE: 55 SEX: F EXAM STATUS: REG ER ORD. PHYSICIAN: PRAVEEN PACHECO DO REASON: CHEST PAIN PROCEDURE: PORTABLE CHEST 1V EXAM: XR CHEST 1V 04/06/2020 9:23 AM CLINICAL INDICATION: Chest pain COMPARISON: Chest radiograph 03/10/2020 TECHNIQUE: AP view of the chest FINDINGS: The heart and mediastinum are normal. Lungs are well-expanded and clear. No consolidation, pleural effusion, or pneumothorax. Pulmonary vascularity is normal. The thoracic skeleton is intact. IMPRESSION: Normal chest radiograph. Electronically signed by: Stephanie Hunt MD (04/06/2020 9:57 AM) [id number] DICTATED and SIGNED BY: STEPHANIE HUNT MD DATE: 04/06/20 [id number] 0 Course & Med Decision Making: Course & Med Decision Making Pertinent Labs and Imaging studies reviewed. (See chart for details) Patient is 55-year-old female who presented to ER due to chest pain on the left side. Her chest pain is reproducible to palpation, most likely musculoskeletal in nature. Patient will be discharged home with muscle relaxer Dragon Disclaimer: Jesús Disclaimer: This electronic medical record was generated, in whole or in part, using a voice recognition dictation system. Departure Departure Impression: Primary Impression: Chest pain Disposition: 01 DC HOME SELF CARE/HOMELESS Condition: STABLE Referrals: NO PCP (PCP) follow up with your doctor as needed Patient Instructions: Chest Wall Pain Additional Instructions: Thank you for visiting our Emergency Department. We appreciate you trusting us with your care. If any additional problems come up don't hesitate to return to visit us. Please follow up with your primary care provider so they can plan additional care if needed and know about the problem that you had. If symptoms worsen come back to the Emergency Department. Any concerning symptoms that start such as chest pain, shortness of air, weakness or numbness on one side of the body, running high fevers or any other concerning symptoms return to the ER. Scripts Cyclobenzaprine Hcl (CYCLOBENZAPRINE HCL) 10 Mg Tablet 1 TAB PO TID PRN for MUSCLE SPASMS, #20 TAB Prov: PRAVEEN PACHECO DO 04/06/20 PRAVEEN PACHECO DO Apr 06, 2020 10:09
[2020-04-06 10:10] LABS: ALBUMIN 3.7 g/dL (3.4-5.0); ALBUMIN/GLOBULIN RATIO 0.9 (1.0-1.7); MAGNESIUM 2.1 mg/dL (1.8-2.4); TOTAL BILIRUBIN 0.3 mg/dL (0.2-1.0); TOTAL PROTEIN 7.6 g/dL (6.4-8.2)
[2020-04-06 10:39] LABS: BILIRUBIN,URINE NEGATIVE (NEG); CLARITY,URINE CLEAR; COLOR,URINE YELLOW; NITRITE,URINE NEGATIVE (NEG); PROTEIN,URINE NEGATIVE (NEG-TRACE)
[2020-04-06 10:59] LABS: BACTERIA,URINE 0 /HPF (0-FEW); RBC,URINE OCC /HPF (0-2)
[2020-04-06 11:31] VITALS: BP 152/82
[2020-04-06] MEDS ORDERED: CYCL10TA2 PO (11:50)
--- NOTE | 2020-04-06 12:11 | EKG ---
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
== END 2020-04-06 11:56 | disposition home or self-care (01) ==
LOC: ER 08:56
DX: R07.89 Other chest pain (principal); I10 Essential (primary) hypertension; F17.200 Nicotine dependence, unspecified, uncomplicated; Z98.890 Other specified postprocedural states
CPT/HCPCS: 36415; 71045; 80053; 81001; 83690; 83735; 83880; 84484; 85025; 87077; 87086; 93005; 99285

== ENCOUNTER 2020-06-08 10:53 | Emergency (ER) | payer BC ==
[~2020-06-08] VITALS: Ht 170.2 cm; Wt 96.0 kg
[~2020-06-08 10:53] MED LIST changes: +CYCL10TA2 PO
[2020-06-08] MEDS ORDERED: ASPIRIN 325 MG TABLET PO ONE (11:15)
[2020-06-08] MEDS ORDERED: MORPHINE SULFATE 4 MG/ML VIAL. IV/SQ PRN (11:15)
[2020-06-08] MEDS: NITROGLYCERIN SUBLINGUAL 0.4 MG BOTTLE OF 25. SL PRN ×2 (11:28→11:37)
--- NOTE | 2020-06-08 11:29 | RAD ---
Exam Date: 06/08/2020 11:11 AM XR CHEST 1V Indication: Reason: chest pain / Spl. Instructions: / History: Comparison: April 06, 2020 FINDINGS/ IMPRESSION: The cardiac silhouette and pulmonary vasculature are within normal limits. There is no focal consolidation, pleural effusion or pneumothorax. Electronically signed by: Nikolai Dumont MD (06/08/2020 11:26 AM) [id number]
--- NOTE | 2020-06-08 11:36 | PHYS DOC ---
Past Medical History Past Medical History: Hypertension, TB Additional Past Medical Histor: TB Past Surgical History: , Tubal ligation Additional Past Surgical Histo: RIGHT SHOULDER, RIGHT HAND Smoking Status: Current Every Day Smoker Additional Information: 03/01 ppd Alcohol Use: Occasionally Drug Use: None General Adult EDM: Chief Complaint: HYPERTENSION HPI: HPI: Patient is a 55 year old female with history of hypertension who presents to the ED today complaining of 8 out of 10 sharp left-sided chest pain that has been going on intermittently for 2 days. Patient states the pain is exacerbated when she goes to work. 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 She states this morning the had 7 little children removed from the bus and sent home because they had Covid symptoms. She states this incident exacerbated her pain. She states for a long time anytime she goes to work she feels stressed out and usually has some form of chest pain. Patient denies anything relieving the pain. She states she knows her blood pressure is high because her BP goes up whenever she is stressed out and. She states she does not have a PCP and hence does not have any blood pressure medicine. She states the last time she had blood pressure medicine was in March when she was admitted in the hospital. An echocardiogram done before shows this patient has an ejection fraction of 55 to 60%. Review of Systems: Review of Systems: Constitutional: Denies fever or chills. [] Eyes: Denies change in visual acuity. [] HENT: Denies nasal congestion or sore throat. [] Respiratory: Denies cough or shortness of breath. [] Cardiovascular: Reports chest pain and high blood pressure GI: Denies abdominal pain, nausea, vomiting, bloody stools or diarrhea. [] : Denies dysuria. [] Musculoskeletal: Denies back pain or joint pain. [] Integument: Denies rash. [] Neurologic: Denies headache, focal weakness or sensory changes. [] Psychiatric: Denies depression or anxiety. [] Heart Score: C/O Chest Pain: Yes HEART Score for Chest Pain: HEART Score for Chest Pain Response (Comments) Value History Slighlty/Non-Suspicious 0 ECG Normal 0 Age >45 - < 65 1 Risk Factors 1 or 2 Risk Factors 1 Troponin < Normal Limit 0 Total 2 Risk Factors: Risk Factors: DM, Current or recent (<one month) smoker, HTN, HLP, family history of CAD, obesity. Risk Scores: Score 0 - 3: 2.5% MACE over next 6 weeks - Discharge Home Score 4 - 6: 20.3% MACE over next 6 weeks - Admit for Clinical Observation Score 7 - 10: 72.7% MACE over next 6 weeks - Early Invasive Strategies Current Medications: Current Medications Medications (Trade) Dose Ordered Sig/Kimber Start Time Stop Time Status Last Admin Dose Admin Aspirin (Meredith Aspirin) 325 mg 1X ONCE 06/08/20 11:15 06/08/20 11:16 DC 06/08/20 11:26 325 MG Morphine Sulfate (Morphine Sulfate) 4 mg PRN Q15MIN PRN 06/08/20 11:15 06/09/20 11:14 Nitroglycerin (Nitrostat) 0.4 mg PRN Q5MIN PRN 06/08/20 11:15 06/09/20 11:14 06/08/20 11:28 0.4 MG Allergies: Allergies: Allergies Coded Allergies Type Severity Reaction Last Updated Verified No Known Drug Allergies 06/08/20 No Physical Exam: PE: Constitutional: Well developed, well nourished, no acute distress, non-toxic appearance. [] HENT: Normocephalic, atraumatic, bilateral external ears normal, oropharynx moist, no oral exudates, nose normal. [] Eyes: PERRLA, EOMI, conjunctiva normal, no discharge. [] Neck: Normal range of motion, no tenderness, supple, no stridor. [] Cardiovascular:Heart rate regular rhythm, no murmur [] Lungs & Thorax: Bilateral breath sounds clear to auscultation [] Abdomen: Bowel sounds normal, soft, no tenderness, no masses, no pulsatile masses. [] Skin: Warm, dry, no erythema, no rash. [] Back: No tenderness, no CVA tenderness. [] Extremities: No tenderness, no cyanosis, no clubbing, ROM intact, no edema. [] Neurologic: Alert and oriented X 3, normal motor function, normal sensory function, no focal deficits noted. [] Psychologic: Affect normal, judgement normal, mood normal. [] Current Patient Data: Vital Signs: Vital Signs Date Time Temp Pulse Resp B/P (MAP) Pulse Ox O2 Delivery O2 Flow Rate FiO2 06/08/20 11:28 76 20 176/96 (122) 96 Room Air 06/08/20 11:06 98.4 98.4 EKG: EK interpreted by Dr. Briscoe sinus rhythm heart rate 81 no STEMI [address] Briscoe sinus rhythm heart rate 77 no STEMI [] Radiology/Procedures: Radiology/Procedures: []PROCEDURE: PORTABLE CHEST 1V Exam Date: 06/08/2020 11:11 AM XR CHEST 1V Indication: Reason: chest pain / Spl. Instructions: / History: Comparison: April 06, 2020 FINDINGS/ IMPRESSION: The cardiac silhouette and pulmonary vasculature are within normal limits. There is no focal consolidation, pleural effusion or pneumothorax. Electronically signed by: Vanessa Dumont MD (06/08/2020 11:26 AM) [id number] DICTATED and SIGNED BY: VANESSA DUMONT MD DATE: 06/08/20 [id number] 0 Course & Med Decision Making: Course & Med Decision Making Pertinent Labs and Imaging studies reviewed. (See chart for details) This is a 55-year-old female patient presented to the ED today complaining of chest pain and high blood pressure. Chest pain has been going on for 2 days the patient reports multiple episodes of chest pain that are related to stress in her job. See HPI. She is not on any blood pressure medicine because she does not have a PCP. She has paperwork with her that shows she has an appointment with Dr. Motta on June 22, 2020. BP on arrival to the ED 173/102 with a heart rate of 81 2 EKGs were done in the ED which were negative, 2 troponins were done 3 hours apart which are negative. CBC CMP with nothing really acute UDS positive for marijuana use Patient was offered admission, she completely refused. She states she has had this chest pain numerous times most of it stressed induced at work Blood pressure has come down to 156/80, heart rate 88, patient has an appointment with a PCP. She has been on amlodipine. Send her home with amlodipine to take until she is seen on the . Jesús Disclaimer: Jesús Disclaimer: This electronic medical record was generated, in whole or in part, using a voice recognition dictation system. Departure Departure Impression: Primary Impression: Hypertension Qualified Codes: I10 - Essential (primary) hypertension Additional Impression: Chest pain Qualified Codes: R07.9 - Chest pain, unspecified Disposition: HOME / SELF CARE / HOMELESS Condition: STABLE Referrals: NO PCP (PCP) Follow-up with your doctor as scheduled on June 22 Patient Instructions: Chest Pain Observation, Hypertension Additional Instructions: You were evaluated in the emergency room, your blood pressure is high, please take amlodipine as prescribed. Please follow-up with your primary care doctor on 22 June. Scripts Amlodipine Besylate (AMLODIPINE BESYLATE) 5 Mg Tablet 5 MG PO DAILY, #14 TAB Prov: BLANCA COX APRN 06/08/20 BLANCA COX APRN Jun 08, 2020 11:36
[2020-06-08 11:45] LABS: BASO # 0.1 x10^3/uL (0.0-0.2); BASO % 1 % (0-3); EOS # 0.1 x10^3/uL (0.0-0.7); EOS % 1 % (0-3); HEMATOCRIT 37.6 % (36.0-47.0); HEMOGLOBIN 12.9 g/dL (12.0-15.5); LYMPH # 2.9 x10^3/uL (1.0-4.8); LYMPH % 29 % (24-48); MEAN CORPUSCULAR HEMOGLOBIN 32 pg (25-35); MEAN CORPUSCULAR HGB CONC 34 g/dL (31-37); MEAN CORPUSCULAR VOLUME 93 fL (79-100); MONO # 0.9 x10^3/uL (0.0-1.1); MONO % 9 % (0-9); NEUT % 60 % (31-73); PLATELET COUNT 301 x10^3/uL (140-400); RED BLOOD COUNT 4.06 x10^6/uL (3.50-5.40); RED CELL DISTRIBUTION WIDTH 13.3 % (11.5-14.5)
[2020-06-08 11:51] LABS: CALCIUM 8.6 mg/dL (8.5-10.1); CREATININE 0.9 mg/dL (0.6-1.0); POTASSIUM 3.5 mmol/L (3.5-5.1)
[2020-06-08 11:56] LABS: ALBUMIN 3.3 g/dL (3.4-5.0); ALBUMIN/GLOBULIN RATIO 0.9 (1.0-1.7); MAGNESIUM 2.1 mg/dL (1.8-2.4); TOTAL BILIRUBIN 0.2 mg/dL (0.2-1.0); TOTAL PROTEIN 7.1 g/dL (6.4-8.2)
[2020-06-08 14:24] LABS: BILIRUBIN,URINE NEGATIVE (NEG); CLARITY,URINE CLEAR; COLOR,URINE YELLOW; NITRITE,URINE NEGATIVE (NEG); PROTEIN,URINE NEGATIVE (NEG-TRACE)
[2020-06-08 14:35] LABS: BACTERIA,URINE MODERATE /HPF (0-FEW)
[2020-06-08 14:38] LABS: AMPHETAMINE/METHAMPHETAMINE NEG (NEG); BARBITURATES NEG (NEG); BENZODIAZEPINES NEG (NEG); CANNABINOIDS POS (NEG); COCAINE NEG (NEG); METHADONE NEG (NEG); OPIATES NEG (NEG); PHENCYCLIDINE NEG (NEG)
[2020-06-08] MEDS ORDERED: AMLO-186 PO (15:39)
[2020-06-08 15:50] VITALS: BP 180/101
--- NOTE | 2020-06-08 17:16 | EKG ---
[facility] [address] [place] [address] Test Date: 2020-06-08 Test Time: 11:00:49 Pat Name: RANDI LUGO Department: Patient ID: [id number] Room: Gender: F Legal Financial Specialist: [facility] ER : 1965 Requested By: BLANCA COX Order Number: [id number] Reading MD: Measurements Intervals [place] Rate: 81 P: 60 NE: 146 QRS: -21 QRSD: 72 T: 7 QT: 418 QTc: 486 Interpretive Statements SINUS RHYTHM VENTRICULAR PREMATURE COMPLEX(ES) LEFT ATRIAL ABNORMALITY LEFTWARD AXIS QRS(T) CONTOUR ABNORMALITY CONSIDER ANTEROSEPTAL MYOCARDIAL DAMAGE PROLONGED QT ABNORMAL ECG RI6.02 No previous ECG available for comparison
--- NOTE | 2020-06-08 17:17 | EKG ---
[facility] [address] [place] [address] Test Date: 2020-06-08 Test Time: 11:33:47 Pat Name: RANDI LUGO Department: Patient ID: [id number] Room: Gender: F Import Clerk: [facility] ER : 1965 Requested By: BLANCA COX Order Number: [id number] Reading MD: Measurements Intervals [place] Rate: 77 P: 55 WV: 176 QRS: -27 QRSD: 68 T: -6 QT: 396 QTc: 450 Interpretive Statements SINUS RHYTHM LEFT ATRIAL ABNORMALITY LEFTWARD AXIS QRS(T) CONTOUR ABNORMALITY CONSIDER ANTEROSEPTAL INFARCT CONSISTENT WITH INFERIOR INFARCT PROBABLY OLD ABNORMAL ECG RI6.02 Compared to ECG 06/08/2020 11:00:49 Myocardial infarct finding now present Prolonged QT interval no longer present
== END 2020-06-08 15:50 | disposition home or self-care (01) ==
LOC: ER 10:53
DX: I10 Essential (primary) hypertension (principal); R07.89 Other chest pain; F17.200 Nicotine dependence, unspecified, uncomplicated; Z98.51 Tubal ligation status; Z98.890 Other specified postprocedural states
CPT/HCPCS: 36415; 71045; 80053; 80307; 81001; 83735; 83880; 84443; 84484; 85025; 87086; 93005; 99285

== ENCOUNTER 2020-07-16 11:11 | Emergency (ER) | payer BC ==
[~2020-07-16] VITALS: Ht 172.7 cm; Wt 93.0 kg
[~2020-07-16 11:11] MED LIST changes: +ALBU2.5V8 IH; +AMLO-186 PO; +CYCL5TAB PO; +TRAM-48 PO
[2020-07-16] MEDS ORDERED: PROCHLORPERAZINE 10 MG/2 ML VIAL. IV ONE (13:00)
[2020-07-16] MEDS ORDERED: methylPREDNISolone SOD SUCC PF 125 MG/2 ML VIAL. IV ONE (13:00)
[2020-07-16] MEDS ORDERED: fentaNYL PF VIAL 100 MCG/2 ML VIAL IVP ONE (13:00)
[2020-07-16] MEDS ORDERED: IV NORMAL SALINE 1000ML BAG 1,000 ML IV ONE (13:00)
[2020-07-16 13:07] LABS: BILIRUBIN,URINE SMALL (NEG); CLARITY,URINE CLEAR; COLOR,URINE YELLOW; NITRITE,URINE NEGATIVE (NEG); PH,URINE 5.5 (<5.0-8.0); PROTEIN,URINE NEGATIVE (NEG-TRACE)
[2020-07-16 13:17] LABS: BACTERIA,URINE 0 /HPF (0-FEW); RBC,URINE 0 /HPF (0-2); WBC,URINE 0 /HPF (0-4)
--- NOTE | 2020-07-16 13:21 | RAD ---
Site ID: [id number] EXAMINATION: XR CHEST 1V. HISTORY: 55 years Female Reason: ABD PAIN, DIZZY / Spl. Instructions: / History: . . COMPARISON: June 24, 2000 Findings: The lungs are clear. The heart size is normal. There is no effusion or pneumothorax. The mediastinum and jagdish appear unremarkable. Impression: Unremarkable study. Electronically signed by: Kurt Espitia MD (07/16/2020 1:18 PM) [id number]
[2020-07-16 14:06] LABS: BASO # 0.1 x10^3/uL (0.0-0.2); BASO % 1 % (0-3); EOS # 0.2 x10^3/uL (0.0-0.7); EOS % 2 % (0-3); HEMATOCRIT 38.7 % (36.0-47.0); HEMOGLOBIN 13.4 g/dL (12.0-15.5); LYMPH # 2.9 x10^3/uL (1.0-4.8); LYMPH % 30 % (24-48); MEAN CORPUSCULAR HEMOGLOBIN 32 pg (25-35); MEAN CORPUSCULAR HGB CONC 35 g/dL (31-37); MEAN CORPUSCULAR VOLUME 92 fL (79-100); MONO # 0.9 x10^3/uL (0.0-1.1); MONO % 10 % (0-9); NEUT # 5.6 x10^3/uL (1.8-7.7); NEUT % 58 % (31-73); PLATELET COUNT 316 x10^3/uL (140-400); RED BLOOD COUNT 4.22 x10^6/uL (3.50-5.40); WHITE BLOOD COUNT 9.7 x10^3/uL (4.0-11.0)
[2020-07-16 14:13] LABS: CREATININE 0.8 mg/dL (0.6-1.0); GFR 90.4; POTASSIUM 3.7 mmol/L (3.5-5.1)
[2020-07-16] MEDS ORDERED: IOHEXOL 300 MG/ML 100ML VIAL. IV ONE (14:15)
[2020-07-16 14:19] LABS: ALBUMIN/GLOBULIN RATIO 1.3 (1.0-1.7); TOTAL BILIRUBIN 0.3 mg/dL (0.2-1.0)
--- NOTE | 2020-07-16 14:48 | PHYS DOC ---
Past Medical History Past Medical History: Hypertension, TB Additional Past Medical Histor: TB Past Surgical History: , Tubal ligation Additional Past Surgical Histo: RIGHT SHOULDER, RIGHT HAND Smoking Status: Current Every Day Smoker Additional Information: 1 ppd Alcohol Use: Occasionally Drug Use: None General Adult EDM: Chief Complaint: MULTIPLE COMPLAINTS HPI: HPI: Patient is a 55 year old female who presents with 1 week of headache, sore throat, nausea, constipation, left ear pain, pressure behind her eyes, int ermittent abdominal pain that sharp and she states it moves around and it feels like she is gassy. She states she vomited once this morning. She states that her lower back is also hurting bilaterally. There is no radiation of that pain. She states she was around a coworker who states that he had Covid and his had Covid. Also on July 01 she got her first Covid shot of from [email or web address]. Patient rates her generalized pain a 10 out of 10. She denies nasal congestion, inability to swallow fluid or eat, fever, syncope, dizziness, chest pain, shortness of breath, cough, focal weakness, numbness or tingling, vision changes. Review of Systems: Review of Systems: Constitutional: Denies fever or chills. [] Eyes: Denies change in visual acuity. + Pressure behind her eyes [] HENT: Denies nasal congestion or sore throat. [] Respiratory: Denies cough or shortness of breath. [] Cardiovascular: Denies chest pain or edema. [] GI: +abdominal pain, +nausea, +vomiting, denies bloody stools or diarrhea. + Constipation [] : Denies dysuria. [] Musculoskeletal: + Bilateral lower back pain or denies joint pain. [] Integument: Denies rash. [] Neurologic: + headache, denies focal weakness or sensory changes. [] Endocrine: Denies polyuria or polydipsia. [] Lymphatic: Denies swollen glands. [] Psychiatric: Denies depression or anxiety. [] Heart Score: C/O Chest Pain: No Risk Factors: Risk Factors: DM, Current or recent (<one month) smoker, HTN, HLP, family history of CAD, obesity. Risk Scores: Score 0 - 3: 2.5% MACE over next 6 weeks - Discharge Home Score 4 - 6: 20.3% MACE over next 6 weeks - Admit for Clinical Observation Score 7 - 10: 72.7% MACE over next 6 weeks - Early Invasive Strategies Current Medications: Current Medications Medications (Trade) Dose Ordered Sig/[facility] Start Time Stop Time Status Last Admin Dose Admin Fentanyl Citrate (Fentanyl 2ml Vial) 50 mcg 1X ONCE 07/16/20 13:00 07/16/20 13:06 DC 07/16/20 13:49 50 MCG Iohexol (Omnipaque 300 Mg/ml) 75 ml 1X ONCE 07/16/20 14:15 07/16/20 14:16 DC 07/16/20 14:28 75 ML Methylprednisolone Sodium Succinate (SOLU-Medrol 125MG VIAL) 125 mg 1X ONCE 07/16/20 13:00 07/16/20 13:06 DC 07/16/20 13:41 125 MG Prochlorperazine Edisylate (Compazine) 10 mg 1X ONCE 07/16/20 13:00 07/16/20 13:06 DC 07/16/20 13:44 10 MG Sodium Chloride 1,000 ml @ 1,000 mls/hr 1X ONCE 07/16/20 13:00 07/16/20 13:59 DC 07/16/20 13:40 1,000 MLS/HR Allergies: Allergies: Allergies Coded Allergies Type Severity Reaction Last Updated Verified No Known Drug Allergies 07/16/20 No Physical Exam: PE: Constitutional: Well developed, well nourished, no acute distress, non-toxic appearance. [] HENT: Normocephalic, atraumatic, bilateral external ears normal, oropharynx moist, no oral exudates, nose normal. Left ear redness. [] Eyes: PERRLA, EOMI, conjunctiva normal, no discharge. [] Neck: Normal range of motion, no tenderness, supple, no stridor. [] Cardiovascular:Heart rate regular rhythm, no murmur [] Lungs & Thorax: Bilateral breath sounds clear to auscultation [] Abdomen: Bowel sounds normal, soft, generalized tenderness, no masses, no pulsatile masses. [] Skin: Warm, dry, no erythema, no rash. [] Back: No tenderness, no CVA tenderness. [] Extremities: No tenderness, no cyanosis, no clubbing, ROM intact, no edema. [] Neurologic: Alert and oriented X 3, normal motor function, normal sensory function, no focal deficits noted. [] Psychologic: Affect normal, judgement normal, mood normal. [] Current Patient Data: Labs: Laboratory Tests Test 07/16/20 12:33 07/16/20 12:35 07/16/20 13:28 07/16/20 13:35 POC Urine HCG, Qualitative Hcg negative (Negative) Urine Collection Type Void Urine Color Yellow Urine Clarity Clear Urine pH 5.5 (<5.0-8.0) Urine Specific [place] >=1.030 (1.000-1.030) Urine Protein Negative mg/dL (NEG-TRACE) Urine Glucose (UA) Negative mg/dL (NEG) Urine Ketones (Stick) Trace mg/dL (NEG) Urine Blood Negative (NEG) Urine Nitrite Negative (NEG) Urine Bilirubin Small (NEG) Urine Urobilinogen Dipstick 1.0 mg/dL (0.2 mg/dL) Urine Leukocyte Esterase Negative (NEG) Urine RBC 0 /HPF (0-2) Urine WBC 0 /HPF (0-4) Urine Squamous Epithelial Cells Many /LPF Urine Bacteria 0 /HPF (0-FEW) Urine Mucus Marked /LPF SARS-CoV-2 Antigen (Rapid) Negative (NEGATIVE) White Blood Count 9.7 x10^3/uL (4.0-11.0) Red Blood Count 4.22 x10^6/uL (3.50-5.40) Hemoglobin 13.4 g/dL (12.0-15.5) Hematocrit 38.7 % (36.0-47.0) Mean Corpuscular Volume 92 fL (79-100) Mean Corpuscular Hemoglobin 32 pg (25-35) Mean Corpuscular Hemoglobin Concent 35 g/dL (31-37) Red Cell Distribution Width 13.0 % (11.5-14.5) Platelet Count 316 x10^3/uL (140-400) Neutrophils (%) (Auto) 58 % (31-73) Lymphocytes (%) (Auto) 30 % (24-48) Monocytes (%) (Auto) 10 % (0-9) H Eosinophils (%) (Auto) 2 % (0-3) Basophils (%) (Auto) 1 % (0-3) Neutrophils # (Auto) 5.6 x10^3/uL (1.8-7.7) Lymphocytes # (Auto) 2.9 x10^3/uL (1.0-4.8) Monocytes # (Auto) 0.9 x10^3/uL (0.0-1.1) Eosinophils # (Auto) 0.2 x10^3/uL (0.0-0.7) Basophils # (Auto) 0.1 x10^3/uL (0.0-0.2) Sodium Level 146 mmol/L (136-145) H Potassium Level 3.7 mmol/L (3.5-5.1) Chloride Level 110 mmol/L (98-107) H Carbon Dioxide Level 29 mmol/L (21-32) Anion Gap 7 (6-14) Blood Urea Nitrogen 16 mg/dL (7-20) Creatinine 0.8 mg/dL (0.6-1.0) Estimated GFR (Cockcroft-Gault) 90.4 BUN/Creatinine Ratio 20 (6-20) Glucose Level 103 mg/dL (70-99) H Calcium Level 9.0 mg/dL (8.5-10.1) Total Bilirubin 0.3 mg/dL (0.2-1.0) Aspartate Amino Transferase (AST) 18 U/L (15-37) Alanine Aminotransferase (ALT) 28 U/L (14-59) Alkaline Phosphatase 70 U/L (46-116) Total Protein 7.0 g/dL (6.4-8.2) Albumin 4.0 g/dL (3.4-5.0) Albumin/Globulin Ratio 1.3 (1.0-1.7) Lipase 184 U/L (73-393) Laboratory Tests 07/16/20 13:35 Laboratory Tests 07/16/20 13:35 Vital Signs: Vital Signs Date Time Temp Pulse Resp B/P (MAP) Pulse Ox O2 Delivery O2 Flow Rate FiO2 07/16/20 13:51 81 20 150/87 (108) 99 Room Air 07/16/20 12:08 99.0 99.0 EKG: EKG: [] Radiology/Procedures: Radiology/Procedures: [] Impression: [facility] [address] [place], [place] [id number] IMAGING REPORT Signed PATIENT: PARISHRANDI Calderon ACCOUNT: [id number] : 1965 LOCATION: ER AGE: 55 SEX: F EXAM STATUS: REG ER ORD. PHYSICIAN: BAY OLIVIA APRN REASON: ABD PAIN, DIZZY PROCEDURE: PORTABLE CHEST 1V Site ID: [id number] EXAMINATION: XR CHEST 1V. HISTORY: 55 years Female Reason: ABD PAIN, DIZZY / Spl. Instructions: / History: . . COMPARISON: June 24, 2000 Findings: The lungs are clear. The heart size is normal. There is no effusion or pneumothorax. The mediastinum and jagdish appear unremarkable. Impression: Unremarkable study. Electronically signed by: Jackie Espitia MD (07/16/2020 1:18 PM) [id number] DICTATED and SIGNED BY: JACKIE ESPITIA MD DATE: 07/16/20 [id number] [facility] [address] [place] [address] IMAGING REPORT Signed PATIENT: RANDI LUGO ACCOUNT: [id number] : 1965 LOCATION: ER AGE: 55 SEX: F EXAM STATUS: REG ER ORD. PHYSICIAN: BAY OLIVIA APRN REASON: VOMITING, ABD PAIN PROCEDURE: CT ABD PELV W/ IV CONTRST ONLY Exam Date: 07/16/2020 2:[address] ABDOMEN+PELVIS W Indication: Reason: VOMITING, ABD PAIN / Spl. Instructions: [id number] 75ML / History: TECHNIQUE: CT examination of the abdomen and pelvis was performed following the administration of oral and nonionic intravenous contrast. One or more of the following dose reduction techniques were utilized: *Automated exposure control (AEC) *Adjustment of mA and/or kV according to patient size *Use of iterative reconstruction technique *CT scan done according to ALARA, or ALARA/IMAGE GENTLY FINDINGS: The visualized lung bases demonstrate mild dependent atelectasis. There is a calcified granuloma in the spleen. The liver, gallbladder, spleen, pancreas, adrenal glands and kidneys are otherwise normal. Urinary bladder is normal in appearance. There is no bowel obstruction or inflammation. No evidence for acute appendicitis. Mild atherosclerotic calcifications are seen. No lymphadenopathy or ascites is seen. Degenerative changes are seen in the spine. IMPRESSION: No evidence of acute intra-abdominal pathology. Electronically signed by: Vanessa Dumont MD (07/16/2020 3:20 PM) [facility] DICTATED and SIGNED BY: VANESSA DUMONT MD DATE: 07/16/20 [id number] 0 [facility] [address] [place] [address] IMAGING REPORT Signed PATIENT: RANDI LUGO ACCOUNT: [id number] : 1965 LOCATION: ER AGE: 55 SEX: F EXAM STATUS: REG ER ORD. PHYSICIAN: BAY OLIVIA APRN REASON: HEADACHE, DIZZY PROCEDURE: CT HEAD AND MAXILLOFACIAL WO Exam Date: 07/16/2020 2:[address] HEAD AND MAXILLOFACIAL WO Indication: Reason: HEADACHE, DIZZY / Spl. Instructions: / History: One or more of the following dose reduction techniques were utilized: *Automated exposure control (AEC) *Adjustment of mA and/or kV according to patient size *Use of iterative reconstruction technique *CT scan done according to ALARA, or ALARA/IMAGE GENTLY EXAMINATION: CT OF THE HEAD WITHOUT CONTRAST INDICATION: headache, dizziness TECHNIQUE: Noncontrast helical axial CT images of the head were obtained. COMPARISON: March 10, 2020 FINDINGS: The ventricles and sulci are normal for the patient's stated age. There is no evidence of acute intracranial hemorrhage, extra-axial collection, mass effect, midline shift, or acute territorial infarct. The visualized paranasal sinuses, mastoid air cells, and orbits are normal in appearance. There is a 2.8 x 1.7 cm calcified density along the inner table of the right temporal bone in the middle cranial fossa consistent with an osteoma versus a calcified meningioma. IMPRESSION: No evidence for acute intracranial abnormality. 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 EXAMINATION: MAXILLOFACIAL CT WITHOUT CONTRAST CLINICAL INDICATION: Maxillofacial pain TECHNIQUE: Helical axial CT images through the maxillofacial bones were obtained without contrast. Source data were reconstructed into the sagittal and coronal planes. FINDINGS: There is no evidence of acute facial bone fracture. The mandible appears intact. Orbits appear intact. The nasal septum is intact and near midline. The visualized paranasal sinuses and mastoid air cells appear clear. IMPRESSION: No evidence of acute fracture of the maxillofacial bones. Electronically signed by: Vanessa Dumont MD (07/16/2020 3:06 PM) [facility] DICTATED and SIGNED BY: VANESSA DUMONT MD DATE: 07/16/20 [id number] 0 Course & Med Decision Making: Course & Med Decision Making Pertinent Labs and Imaging studies reviewed. (See chart for details) COVID-19 CRITERIA: The patient was evaluated during the global COVID-19 pandemic, and that diagnosis was suspected/considered upon their initial presentation. Their evaluation, treatment and testing was consistent with current guidelines for patients who present with complaints or symptoms that may be related to COVID-19. See HPI. Alert and oriented x4. Ambulatory with steady gait. PERRLA. Skin pink warm and dry. Afebrile. Lungs are clear all station all lobes. Abdomen is soft with generalized tenderness with palpation. Speaks in full clear sentences. No CVA tenderness. Left ear redness. No nasal congestion. No sinus tenderness with palpation. Chest x-ray, head CT and maxillofacial CT showed no acute findings. Blood work is unremarkable. Urinalysis shows a little bit of dehydration. Patient did receive 1 L of normal saline in the ED. Her Covid is negative. Patient will be sent home on antibiotic due to the redness in her ear. Patient is stable and in no distress. [] Dragon Disclaimer: Dragon Disclaimer: This electronic medical record was generated, in whole or in part, using a voice recognition dictation system. Departure Departure Impression: Primary Impression: AOM (acute otitis media) Qualified Codes: H66.90 - Otitis media, unspecified, unspecified ear Additional Impressions: Headache Qualified Codes: R51.9 - Headache, unspecified Nausea Disposition: 01 HOME / SELF CARE / HOMELESS Condition: STABLE Referrals: AZIZA MICHAUD MD (PCP) Patient Instructions: General Headache Without Cause, Otitis Media, Adult Additional Instructions: Follow-up with your primary care physician. Your Covid was negative today. Drink plenty of fluids to stay hydrated. Take Tylenol or ibuprofen for your pain. Take medication as prescribed and with food. Scripts Amoxicillin (AMOXICILLIN) 500 Mg Capsule 1 CAP PO BID, #20 CAP Prov: BAY OLIVIA APRN 07/16/20 BAY OLIVIA APRN July 16, 2020 14:48
--- NOTE | 2020-07-16 15:09 | RAD ---
Exam Date: 07/16/2020 2:[address] HEAD AND MAXILLOFACIAL WO Indication: Reason: HEADACHE, DIZZY / Spl. Instructions: / History: One or more of the following dose reduction techniques were utilized: *Automated exposure control (AEC) *Adjustment of mA and/or kV according to patient size *Use of iterative reconstruction technique *CT scan done according to ALARA, or ALARA/IMAGE GENTLY EXAMINATION: CT OF THE HEAD WITHOUT CONTRAST INDICATION: headache, dizziness TECHNIQUE: Noncontrast helical axial CT images of the head were obtained. COMPARISON: March 10, 2020 FINDINGS: The ventricles and sulci are normal for the patient's stated age. There is no evidence of acute int racranial hemorrhage, extra-axial collection, mass effect, midline shift, or acute territorial infarc t. The visualized paranasal sinuses, mastoid air cells, and orbits are normal in appearance. There is a 2.8 x 1.7 cm calcified density along the inner table of the right temporal bone in the middle cran ial fossa consistent with an osteoma versus a calcified meningioma. IMPRESSION: No evidence for acute intracranial abnormality. Osteoma versus calcified meningioma along the inner table of the right temporal bone in the middle cr anial fossa. EXAMINATION: MAXILLOFACIAL CT WITHOUT CONTRAST CLINICAL INDICATION: Maxillofacial pain TECHNIQUE: Helical axial CT images through the maxillofacial bones were obtained without contrast. So urce data were reconstructed into the sagittal and coronal planes. FINDINGS: There is no evidence of acute facial bone fracture. The mandible appears intact. Orbits appear intact . The nasal septum is intact and near midline. The visualized paranasal sinuses and mastoid air cells appear clear. IMPRESSION: No evidence of acute fracture of the maxillofacial bones. Electronically signed by: Nikolai Dumont MD (07/16/2020 3:06 PM) [facility]
--- NOTE | 2020-07-16 15:23 | RAD ---
Exam Date: 07/16/2020 2:[address] ABDOMEN+PELVIS W Indication: Reason: VOMITING, ABD PAIN / Spl. Instructions: [id number] 75ML / History: TECHNIQUE: CT examination of the abdomen and pelvis was performed following the administration of or al and nonionic intravenous contrast. One or more of the following dose reduction techniques were ut ilized: *Automated exposure control (AEC) *Adjustment of mA and/or kV according to patient size *Use of iterative reconstruction technique *CT scan done according to ALARA, or ALARA/IMAGE GENTLY FINDINGS: The visualized lung bases demonstrate mild dependent atelectasis. There is a calcified granuloma in the spleen. The liver, gallbladder, spleen, pancreas, adrenal glands and kidneys are otherwise normal. Urinary bladder is normal in appearance. There is no bowel obstruction or inflammation. No evidence for acute appendicitis. Mild atherosclerotic calcifications are seen. No lymphadenopathy or ascites is seen. Degenerative changes are seen in the spine. IMPRESSION: No evidence of acute intra-abdominal pathology. Electronically signed by: Nikolai Dumont MD (07/16/2020 3:20 PM) [facility]
[2020-07-16 15:55] VITALS: BP 156/90
[2020-07-16] MEDS ORDERED: AMOX500C PO (15:55)
--- NOTE | 2020-07-17 15:41 | NUR ---
IP: Attempted to contact pt concerning covid results. No answer, left a voicemail to return the call.
== END 2020-07-16 16:16 | disposition home or self-care (01) ==
LOC: ER 11:11
DX: H66.92 Otitis media, unspecified, left ear (principal); R51.9 Headache, unspecified; R11.2 Nausea with vomiting, unspecified; J02.9 Acute pharyngitis, unspecified; R10.84 Generalized abdominal pain; I10 Essential (primary) hypertension; F17.200 Nicotine dependence, unspecified, uncomplicated; Z20.822 Contact with and (suspected) exposure to COVID-19; Z98.890 Other specified postprocedural states; Z98.51 Tubal ligation status
CPT/HCPCS: 70450; 70486; 71045; 74177; 80053; 81001; 81025; 83690; 85025; 87070; 87426; 87880; 93005; 96361; 96374; 96375; 99285; J0780; J2930; J3010; J7030; Q9967; U0003; U0005

== ENCOUNTER 2021-05-25 11:30 | Emergency (ER) | payer BC ==
[~2021-05-25] VITALS: Ht 172.7 cm; Wt 95.2 kg
[~2021-05-25 11:30] MED LIST changes: +AMOX500C PO; +CYCL10TA19 PO; -CYCL10TA2 PO
[2021-05-25] MEDS ORDERED: LISINOPRIL 10 MG TABLET PO ONE (12:45)
[2021-05-25] MEDS ORDERED: hydroCHLOROthiazide 12.5 MG CAPSULE PO ONE (12:45)
--- NOTE | 2021-05-25 13:05 | RAD ---
EXAM: XR CHEST 1V 05/25/2021 12:40 PM CLINICAL INDICATION: Hypertension COMPARISON: Chest radiograph 07/16/2020 TECHNIQUE: AP upright view of the chest FINDINGS: The heart is normal in size. Lungs are adequately expanded. There is no consolidation, ple ural effusion, or pneumothorax. No acute osseous abnormality. IMPRESSION: No acute cardiopulmonary abnormality. Electronically signed by: Stephanie Hunt MD (05/25/2021 1:03 PM) [id number]
[2021-05-25 13:06] LABS: BASO # 0.1 x10^3/uL (0.0-0.2); BASO % 1 % (0-3); EOS # 0.1 x10^3/uL (0.0-0.7); EOS % 1 % (0-3); HEMATOCRIT 38.5 % (36.0-47.0); LYMPH # 2.1 x10^3/uL (1.0-4.8); LYMPH % 28 % (24-48); MEAN CORPUSCULAR HEMOGLOBIN 31 pg (25-35); MEAN CORPUSCULAR HGB CONC 34 g/dL (31-37); MEAN CORPUSCULAR VOLUME 93 fL (79-100); MONO # 0.7 x10^3/uL (0.0-1.1); MONO % 10 % (0-9); NEUT # 4.4 x10^3/uL (1.8-7.7); NEUT % 60 % (31-73); PLATELET COUNT 354 x10^3/uL (140-400); RED BLOOD COUNT 4.13 x10^6/uL (3.50-5.40); RED CELL DISTRIBUTION WIDTH 13.4 % (11.5-14.5); WHITE BLOOD COUNT 7.4 x10^3/uL (4.0-11.0)
[2021-05-25 13:21] LABS: BACTERIA,URINE FEW /HPF (0-FEW); RBC,URINE 0 /HPF (0-2)
[2021-05-25 13:37] LABS: CALCIUM 9.1 mg/dL (8.5-10.1); CREATININE 0.8 mg/dL (0.6-1.0); GFR 90.1; POTASSIUM 3.7 mmol/L (3.5-5.1)
[2021-05-25 13:43] LABS: ALBUMIN 3.8 g/dL (3.4-5.0); ALBUMIN/GLOBULIN RATIO 1.2 (1.0-1.7); MAGNESIUM 2.1 mg/dL (1.8-2.4); TOTAL BILIRUBIN 0.3 mg/dL (0.2-1.0); TOTAL PROTEIN 7.1 g/dL (6.4-8.2)
[2021-05-25] MEDS ORDERED: AMLO-186 PO (14:15)
[2021-05-25] MEDS ORDERED: LISI1TAB35 PO (14:15)
--- NOTE | 2021-05-25 14:15 | PHYS DOC ---
Past Medical History Past Medical History: Hypertension, TB Additional Past Medical Histor: TB Past Surgical History: , Tubal ligation Additional Past Surgical Histo: RIGHT SHOULDER, RIGHT HAND Smoking Status: Current Every Day Smoker Alcohol Use: Occasionally Drug Use: None Adult General Chief Complaint Chief Complaint: HYPERTENSION HPI HPI Patient is a 56 year old female with blood pressure issues at home. Patient states that she ran out of her medication a couple months ago. Today she began to develop a headache and had a [id number] sensation over both lower extremities. She has had similar symptoms with prior episodes of her blood pressure going up. She denies any chest pain or shortness of breath. No confusion, blurry vision or darkening of her urine. No recent trauma, fever or illness. Review of Systems Review of Systems Constitutional: Denies fever Eyes: Denies change in visual acuity or eye pain HENT: Denies sore throat Respiratory: Denies shortness of breath Cardiovascular: Denies chest pain GI: Denies abd pain : Denies dysuria Musculoskeletal: Denies back or extremity injury Integument: Denies rash or skin lesions Neurologic: Reports headache, denies focal weakness or sensory changes All other systems were reviewed and found to be within normal limits, except as documented in this note. Current Medications Current Medications Current Medications Medications (Trade) Dose Ordered Sig/Kimber Start Time Stop Time Status Last Admin Dose Admin Amlodipine Besylate (Norvasc) 5 mg 1X ONCE 05/25/21 12:45 05/25/21 12:46 DC 05/25/21 12:55 5 MG Hydrochlorothiazide (Microzide) 12.5 mg 1X ONCE 05/25/21 12:45 05/25/21 12:46 DC 05/25/21 12:53 12.5 MG Lisinopril (Prinivil) 10 mg 1X ONCE 05/25/21 12:45 05/25/21 12:46 DC 05/25/21 12:56 10 MG Allergies Allergies Allergies Coded Allergies Type Severity Reaction Last Updated Verified No Known Drug Allergies 05/25/21 No Physical Exam Physical Exam Constitutional: Well developed, well nourished, no acute distress, non-toxic appearance. [] HENT: Normocephalic, atraumatic, bilateral external ears normal, oropharynx moist, no oral exudates, nose normal. [] Eyes: PERRLA, EOMI, conjunctiva normal, no discharge. [] Neck: Normal range of motion, no tenderness, supple, no stridor. [] Cardiovascular:Heart rate regular rhythm, no murmur [] Lungs & Thorax: Bilateral breath sounds clear to auscultation [] Abdomen: Bowel sounds normal, soft, no tenderness, no masses, no pulsatile ma sses. [] Skin: Warm, dry, no erythema, no rash. [] Back: No tenderness, no CVA tenderness. [] Extremities: No tenderness, no cyanosis, no clubbing, ROM intact, no edema. [] Neurologic: Alert and oriented X 3, normal motor function, normal sensory function, no focal deficits noted. [] Psychologic: Affect normal, judgement normal, mood normal. [] Current Patient Data Vital Signs Vital Signs Date Time Temp Pulse Resp B/P (MAP) Pulse Ox O2 Delivery O2 Flow Rate FiO2 05/25/21 12:56 73 169/84 05/25/21 11:45 97.9 18 97 Room Air 97.9 Lab Values Laboratory Tests Test 05/25/21 11:43 05/25/21 12:00 Urine Collection Type Void Urine Color (Auto) Light yellow Urine Turbidity Clear Urine pH (Auto) 6.0 (<5.0-8.0) Urine Specific [place] 1.018 (1.000-1.030) Urine Protein (Auto) Negative mg/dL (Negative) Urine Glucose (Auto)(UA) Negative mg/dL (Negative) Urine Ketones (Auto) Negative mg/dL (Negative) Urine Blood (Auto) Trace (Negative) Urine Nitrite Negative (Negative) Urine Bilirubin (Auto) Negative (Negative) Urine Urobilinogen (Auto) Normal mg/dL (Normal) Urine Leukocyte Esterase (Auto) Negative (Negative) Urine RBC 0 /HPF (0-2) Urine WBC 1-4 /HPF (0-4) Urine Squamous Epithelial Cells Many /LPF Urine Bacteria Few /HPF (0-FEW) White Blood Count 7.4 x10^3/uL (4.0-11.0) Red Blood Count 4.13 x10^6/uL (3.50-5.40) Hemoglobin 13.0 g/dL (12.0-15.5) Hematocrit 38.5 % (36.0-47.0) Mean Corpuscular Volume 93 fL (79-100) Mean Corpuscular Hemoglobin 31 pg (25-35) Mean Corpuscular Hemoglobin Concent 34 g/dL (31-37) Red Cell Distribution Width 13.4 % (11.5-14.5) Platelet Count 354 x10^3/uL (140-400) Neutrophils (%) (Auto) 60 % (31-73) Lymphocytes (%) (Auto) 28 % (24-48) Monocytes (%) (Auto) 10 % (0-9) H Eosinophils (%) (Auto) 1 % (0-3) Basophils (%) (Auto) 1 % (0-3) Neutrophils # (Auto) 4.4 x10^3/uL (1.8-7.7) Lymphocytes # (Auto) 2.1 x10^3/uL (1.0-4.8) Monocytes # (Auto) 0.7 x10^3/uL (0.0-1.1) Eosinophils # (Auto) 0.1 x10^3/uL (0.0-0.7) Basophils # (Auto) 0.1 x10^3/uL (0.0-0.2) Sodium Level 141 mmol/L (136-145) Potassium Level 3.7 mmol/L (3.5-5.1) Chloride Level 106 mmol/L (98-107) Carbon Dioxide Level 25 mmol/L (21-32) Anion Gap 10 (6-14) Blood Urea Nitrogen 14 mg/dL (7-20) Creatinine 0.8 mg/dL (0.6-1.0) Estimated GFR (Cockcroft-Gault) 90.1 BUN/Creatinine Ratio 18 (6-20) Glucose Level 107 mg/dL (70-99) H Calcium Level 9.1 mg/dL (8.5-10.1) Magnesium Level 2.1 mg/dL (1.8-2.4) Total Bilirubin 0.3 mg/dL (0.2-1.0) Aspartate Amino Transferase (AST) 24 U/L (15-37) Alanine Aminotransferase (ALT) 30 U/L (14-59) Alkaline Phosphatase 64 U/L (46-116) Troponin I High Sensitivity 8 ng/L (4-50) YE-Vrr-F-Type Natriuretic Peptide 102 pg/mL (0-124) Total Protein 7.1 g/dL (6.4-8.2) Albumin 3.8 g/dL (3.4-5.0) Albumin/Globulin Ratio 1.2 (1.0-1.7) Laboratory Tests 05/25/21 12:00 Laboratory Tests 05/25/21 12:00 EKG EKG [] Interpretation Time: Twelve-lead EKG demonstrates a sinus rhythm with several PVCs present. These are unifocal in nature, 4 present on the EKG. Overall ventricular rate is 71. DE, QRS and QT corrected are within normal limits with a borderline QT corrected at 538, this is artificially prolonged all from the PVCs. No ST segment elevation or depression. Radiology/Procedures Radiology/Procedures [] Impressions: PATIENT: RANDI LUGO RACCOUNT: [id number]#: [id number] : 1965 LOCATION: ER AGE: 56 SEX: F EXAM STATUS: REG ER ORD. PHYSICIAN: BARBI WELLS MD REASON: hypertension PROCEDURE: CHEST AP ONLY EXAM: XR CHEST 1V 05/25/2021 12:40 PM CLINICAL INDICATION: Hypertension COMPARISON: Chest radiograph 07/16/2020 TECHNIQUE: AP upright view of the chest FINDINGS: The heart is normal in size. Lungs are adequately expanded. There is no consolidation, pleural effusion, or pneumothorax. No acute osseous abnormality. IMPRESSION: No acute cardiopulmonary abnormality. Electronically signed by: Stephanie Hunt MD (05/25/2021 1:03 PM) [id number] DICTATED and SIGNED BY: STEPHANIE HUNT MD DATE: 05/25/21 1302 Course & Med Decision Making Course & Med Decision Making Pertinent Labs and Imaging studies reviewed. (See chart for details) [] Is a 56-year-old female with hypertension. She ran out of her medications. While in the emergency department she was given 5 mg of amlodipine, 10 mg of lisinopril and 12.5 of hydrochlorothiazide. Her symptoms resolved after an hour or 2 of observation. Last blood pressure was 172/99. We will hold off on giving her anything else so as we want to drop her pressure too quickly. We krisitne l have her follow-up with her primary care physician for further medication adjustments as necessary. Chest x-ray and laboratory studies are unremarkable. Patient has been in a sinus rhythm on the hall monitor and her PVCs have now resolved. She is encouraged to follow-up with her primary care physician this week if possible, return to the emergency department at any time should symptoms recur or other problems arise, she is stable for discharge. Dragon Disclaimer Dragon Disclaimer This electronic medical record was generated, in whole or in part, using a voice recognition dictation system. Departure Departure Impression: Primary Impression: Hypertension Disposition: HOME / SELF CARE / HOMELESS Condition: STABLE Referrals: AZIZA MICHAUD MD (PCP) Patient Instructions: Hypertension Scripts Lisinopril/Hydrochlorothiazide (LISINOPRIL-HCTZ 10-12.5 MG TAB) 1 Each Tablet 1 TAB PO DAILY, #30 TAB 0 Refills Prov: BARBI WELLS MD 05/25/21 Amlodipine Besylate (AMLODIPINE BESYLATE) 5 Mg Tablet 5 MG PO DAILY, #30 TAB Prov: BARBI WELLS MD 05/25/21 BARBI WELLS MD May 25, 2021 14:15
--- NOTE | 2021-05-25 14:23 | EKG ---
[facility] [address] [place] [address] Test Date: 2021-05-25 Test Time: 13:27:29 Pat Name: RANDI LUGO Department: Room: Gender: F Clinical Outcomes Manager: : 1965 Requested By: BARBI WELLS Order Number: [id number] Reading MD: Johnson Dias Measurements Intervals [place] Rate: 71 P: 46 AK: 170 QRS: -25 QRSD: 74 T: 15 QT: 490 QTc: 538 Interpretive Statements SINUS RHYTHM VENTRICULAR PREMATURE COMPLEX(ES) LEFTWARD AXIS CONSIDER LEFT VENTRICULAR HYPERTROPHY QRS(T) CONTOUR ABNORMALITY CONSISTENT WITH INFERIOR INFARCT AGE UNDETERMINED T ABNORMALITY IN ANTERIOR LEADS LATERAL LEADS ABNORMAL ECG Electronically Signed On 05-29-2021 21:43:49 CDT by Johnson Dias
[2021-05-25 14:49] VITALS: BP 171/91
== END 2021-05-25 15:09 | disposition home or self-care (01) ==
LOC: ER 11:30
DX: I10 Essential (primary) hypertension (principal); F17.200 Nicotine dependence, unspecified, uncomplicated
CPT/HCPCS: 36415; 71045; 80053; 81001; 83735; 83880; 84484; 85025; 93005; 99285-25